=== PATIENT | male | born 1965 | race Caucasian/White ===

== ENCOUNTER 2016-05-16 16:22 | Emergency (ER) | payer MEDICARE ==
[2016-05-16 16:34] VITALS: BP 156/84; PULSE 69; O2SAT 97
[2016-05-16] MEDS ORDERED: TORAdol 30 mg Injection IM ONE ×2 (16:44→17:15)
[2016-05-16] MEDS ORDERED: TORAdol 30 mg Injection ONE ×2 (16:46→17:23)
--- NOTE | 2016-05-16 16:46 | ERPHSYRPT ---
- History of Present Illness Time Seen by Provider: 05/16/16 16:35 Source: patient Exam Limitations: no limitations Patient Subjective Stated Complaint: back pain and sob for days Triage Nursing Assessment: sob for 2 hours. c/o lower back pain since this morning. lungs clear. full sentences. a/o x3. dialysis m,w,f. states 'i feel like i have extra fluid on board today' 1+ edema to lower extremities Timing/Duration: today Activities at Onset: none Severity of Dyspnea-Max: moderate Severity of Dyspnea-Current: moderate Possible Cause: frequent episodes Modifying Factors: Improves With: nothing, other (He says he sleeps in a recliner, which may have aggravated his lumbar spine.) Associated Symptoms: denies symptoms, edema (1+ pretibial pitting edema kim LE at baseline) Allergies/Adverse Reactions: erythromycin base [Erythromycin Base] Allergy (Unknown, Verified 05/16/16 16:34) iodine [Iodine] Allergy (Unknown, Verified 05/16/16 16:34) Macrolide Antibiotics Allergy (Unknown, Verified 05/16/16 16:34) nitrofurantoin [Nitrofurantoin] Allergy (Unknown, Verified 05/16/16 16:34) acetaminophen [From Lortab] Allergy (Verified 05/16/16 16:34) hydrocodone bitartrate [From Lortab] Allergy (Verified 05/16/16 16:34) morphine Allergy (Verified 05/16/16 16:34) shellfish derived Allergy (Verified 05/16/16 16:34) Home Medications: Amlodipine Besylate 5 mg [Norvasc 5 mg] 10 mg PO DAILY 07/07/15 [History] Apixaban [Eliquis] 1 tab PO BID 07/07/15 [History] Aspirin 81 mg PO DAILY 07/07/15 [History] Atorvastatin Calcium [Lipitor] 40 mg PO HS 07/07/15 [History] Clonidine HCl 0.1 mg [Catapres 0.1 MG] 0.2 mg PO BID 07/07/15 [History] Clopidogrel Bisulfate 75 mg [PLAVIX 75 MG Tablet] 75 mg PO DAILY 07/07/15 [History] Divalproex Sodium ER 250 mg [Depakote EXTENDED RELEASE 250 MG] 250 mg PO Q12H 07/07/15 [History] Furosemide 40 mg [Lasix 40 MG] 40 mg PO TID 07/07/15 [History] Insulin Glargine [Lantus Insulin] 15 unit SQ DAILY 07/07/15 [History] Insulin Lispro [Humalog Kwikpen U-100] 0 unit SQ UD 07/07/15 [History] Labetalol HCl 200 mg PO Q12H 07/07/15 [History] Levothyroxine Sodium 75 Mcg [Synthroid 75 Mcg] 75 mcg PO DAILY 07/07/15 [ History] Lisinopril 10 mg [Zestril 10 MG] 20 mg PO DAILY 07/07/15 [History] Metoprolol Succinate 25 mg Xl* [Toprol-Xl 25MG Tablets] 1 tab PO BID [History] Nitroglycerin 0.4 mg Tablet [Nitrostat 0.4 MG Tablet] 0.4 mg SL UD [History] Ondansetron [Ondansetron Odt] 4 mg PO BIDPRN PRN 07/07/15 [History] PANTOPRAZOLE 40 mg Tablet [Protonix 40MG Tablet] 40 mg PO DAILY 07/07/15 [ History] Hx Tetanus, Diphtheria Vaccination/Date Given: Yes Hx Influenza Vaccination/Date Given: Yes Hx Pneumococcal Vaccination/Date Given: No Immunizations Up to Date: Yes - Review of Systems Constitutional: No Symptoms Eyes: No Symptoms Ears, Nose, & Throat: No Symptoms Respiratory: No Symptoms Cardiac: Edema Abdominal/Gastrointestinal: No Symptoms Musculoskeletal: Back Pain (lumbosacral.) Skin: No Symptoms Neurological: No Symptoms Psychological: No Symptoms Endocrine: No Symptoms Hematologic/Lymphatic: No Symptoms Immunological/Allergic: No Symptoms - Past Medical History Pertinent Past Medical History: Yes Neurological History: Migraines ENT History: No Pertinent History Cardiac History: Congestive Heart Failure, Coronary Artery Disease, Hypertension , Myocardial Infarction ([place]) Respiratory History: CHF, COPD Endocrine Medical History: Diabetes Type II, Hypothyroidism Musculoskeletal History: Osteoarthritis, Other GI Medical History: No Pertinent History History: Dialysis, Renal Disease Psycho-Social History: No Pertinent History Male Reproductive Disorders: No Pertinent History Other Medical History: RLS - Past Surgical History Past Surgical History: Yes Neuro Surgical History: No Pertinent History Cardiac: CABG, Cardiac Catheterization, Cardiac Stent Respiratory: No Pertinent History Gastrointestinal: Cholecystectomy Genitourinary: No Pertinent History Musculoskeletal: Orthopedic Surgery Male Surgical History: No Pertinent History Other Surgical History: FISTULA, R hip surgery - Social History Smoking Status: Never smoker How long have you smoked: 30 yrs Exposure to second hand smoke: No Alcohol Use: None Drug Use: none Patient Lives Alone: Yes Significant Family History: heart disease, hypertension - Nursing Vital Signs Nursing Vital Signs: Initial Vital Signs Temperature 98.3 F Temperature Source Oral Pulse Rate 69 Respiratory Rate 22 Blood Pressure 156/84 Pain Intensity 7 - Physical Exam General Appearance: mild distress Eye Exam: PERRL/EOMI, eyes nml inspection Ears, Nose, Throat Exam: hearing grossly normal, normal ENT inspection, normal pharynx Neck Exam: normal inspection, non-tender, supple, full range of motion Respiratory Exam: normal breath sounds, lungs clear Cardiovascular/Chest Exam: normal heart sounds, regular rate/rhythm, normal peripheral pulses Abdominal/Gastrointestinal Exam: soft, normal bowel sounds Extremity Exam: non-tender, normal range of motion, normal inspection Neurologic Exam: alert, oriented x 3, cooperative, normal mood/affect Skin Exam: normal color, warm, dry SpO2 Interpretation: normal SpO2: 97 Oxygen Delivery: Room Air - Course Nursing assessment & vital signs reviewed: Yes - Radiology Exams L-Spine X-ray Interpretation: Interpreted by me, Negative Ordered Tests: Active Orders 24 hr Category Date Time Status LUMBAR LIMITED (2 OR 3 VIEWS) Stat Exams 05/16/16 16:49 Taken Medication Summary Discontinued Medications Generic Name Dose Route Start Last Admin Trade Name Deepika PRN Reason Stop Dose Admin Ketorolac Tromethamine 30 mg 05/16/16 16:44 05/16/16 16:47 Toradol 30 Mg Injection IM 05/16/16 16:45 30 mg STAT ONE Administration Ketorolac Tromethamine Confirm 05/16/16 16:46 Toradol 30 Mg Injection Administered 05/16/16 16:47 Dose 30 mg .ROUTE .STK-MED ONE - Progress Progress: improved Air Movement: good Blood Culture(s) Obtained: No Antibiotics given: No Counseled pt/family regarding: need for follow-up (with PCP), rad results - Departure Time of Disposition: 17:10 Departure Disposition: Home Clinical Impression: Lumbosacral strain Qualifiers: Encounter type: subsequent encounter Qualified Code(s): S39.012D - Strain of muscle, fascia and tendon of lower back, subsequent encounter Condition: Stable Critical Care Time: No
[2016-05-16] MEDS ORDERED: TORAdol 30 mg Injection IV ONE (17:19)
[2016-05-16] MEDS ORDERED: BENADRYL 12.5 MG/5 ML PO ONE (17:35)
[2016-05-16] MEDS ORDERED: MAALOX ES 30 ML UNIT DOSE PO ONE (17:35)
[2016-05-16] MEDS ORDERED: XYLOCAINE VISCOUS 2% 20 ML CUP PO ONE (17:36)
--- NOTE | 2016-05-16 20:59 | XRAY ---
Indication: Low low back pain. No known injury. 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 New L5-S1 disc space narrowing. No acute fracture, subluxation, or suspicious bony lesions.
== END 2016-05-16 17:42 | disposition home or self-care (01) ==
LOC: ED 16:22
DX: S39.012D Strain of muscle, fascia and tendon of lower back, subsequent encounter (principal); I10 Essential (primary) hypertension; I50.9 Heart failure, unspecified; Z79.899 Other long term (current) drug therapy
CPT/HCPCS: 36000; 72100; 96372; 96374; 99283; J1642; J1885

== ENCOUNTER 2016-05-16 21:15 | Emergency (ER) | payer MEDICARE ==
[2016-05-16] MEDS ORDERED: Tylenol #3 Tablet PO ONE (22:06)
[2016-05-16 22:10] LABS: Eosinophil % 4.9 % (0.00-5.0); Granulocytes % 76.2 % (36.0-66.0); Lymphocytes % 10.3 % (24.0-44.0); Mean Cell Volume 88.9 fl (78-100); Mean Corpuscular Hemoglobin 28.9 pg (26-32); Mean Platelet Volume 9.6 fl (6-9.5); Monocytes % 7.6 % (0.0-12.0); Platelet Count 150 K/mm3 (150-450); Red Blood Count 3.25 M/mm3 (4.1-5.6); Red Cell Distribution Width 15.8 % (11.5-14.0); White Blood Count 9.5 K/mm3 (4.0-10.5)
[2016-05-16] MEDS ORDERED: Tylenol #3 Tablet ONE (22:10)
--- NOTE | 2016-05-16 22:12 | ERPHSYRPT ---
- History of Present Illness Time Seen by Provider: 05/16/16 22:06 Source: patient Patient Subjective Stated Complaint: yadira been short of breath when i move around and walk. yadira also got a headache behind my rt eye, Triage Nursing Assessment: pt sitting up in bed, alert and oriented. answers qeustions approp. skin warm and dry. respirations nonlabored, lungs cta, dminished. pt states he is unable to lie flat and is sob at rest. dialysis fistula to rt arm. Physician History: This is a 50-year-old white male with history of migraines, diabetes, hypothyroidism, congestive heart failure, COPD, coronary artery disease, high blood pressure, dialysis, renal disease He arrives with complaint of shortness of breath since this evening worse with walking around he denies any chest pain He also states he has a headache posterior to his eyes again since tonight. Patient had been seen earlier today by Dr. Lambert with complaint of low back pain patient had been given Toradol injection 30 mg. Past medical history includes migraines, diabetes, hypothyroidism, CHF, COPD, coronary artery disease, high blood pressure, dialysis, renal disease, osteoarthritis, restless leg syndrome Past surgical history includes CABG, cardiac catheter, cardiac stents, cholecystectomy, orthopedic surgery, fistula, right hip surgery Timing/Duration: today (symptoms since this evening) Activities at Onset: other (short of breath with walking around) Severity of Dyspnea-Max: mild Severity of Dyspnea-Current: mild Modifying Factors: Improves With: activity. Worsens With: nothing, albuterol inhaler, albuterol nebulizer, coughing, deep breath, exertion, lying down, oxygen, rest Associated Symptoms: constant, No intermittent, No anxiety, No chest pain/ discomfort, No edema, No fever, No insomnia, No loss of appetite, No lightheadedness, No wheezing, No weakness, No ankle swelling, No chills, No hemoptysis, No calf pain, No dizziness, No heaviness, No heart racing, No lightheadedness, No leg swelling, No muscle spasms feet, No muscle spasms hands , No painful breathing, No productive cough, No sweating, No tightness, No tingling face, No tingling hands International travel in last 2 weeks: No Allergies/Adverse Reactions: erythromycin base [Erythromycin Base] Allergy (Unknown, Verified 05/16/16 21:30) iodine [Iodine] Allergy (Unknown, Verified 05/16/16 21:30) Macrolide Antibiotics Allergy (Unknown, Verified 05/16/16 21:30) nitrofurantoin [Nitrofurantoin] Allergy (Unknown, Verified 05/16/16 21:30) acetaminophen [From Lortab] Allergy (Verified 05/16/16 21:30) hydrocodone bitartrate [From Lortab] Allergy (Verified 05/16/16 21:30) morphine Allergy (Verified 05/16/16 21:30) shellfish derived Allergy (Verified 05/16/16 21:30) Home Medications: Amlodipine Besylate 5 mg [Norvasc 5 mg] 10 mg PO DAILY 07/07/15 [History] Apixaban [Eliquis] 1 tab PO BID 07/07/15 [History] Aspirin 81 mg PO DAILY 07/07/15 [History] Atorvastatin Calcium [Lipitor] 40 mg PO HS 07/07/15 [History] Clonidine HCl 0.1 mg [Catapres 0.1 MG] 0.2 mg PO BID 07/07/15 [History] Clopidogrel Bisulfate 75 mg [PLAVIX 75 MG Tablet] 75 mg PO DAILY 07/07/15 [History] Divalproex Sodium ER 250 mg [Depakote EXTENDED RELEASE 250 MG] 250 mg PO Q12H 07/07/15 [History] Furosemide 40 mg [Lasix 40 MG] 40 mg PO TID 07/07/15 [History] Insulin Glargine [Lantus Insulin] 15 unit SQ DAILY 07/07/15 [History] Insulin Lispro [Humalog Kwikpen U-100] 0 unit SQ UD 07/07/15 [History] Labetalol HCl 200 mg PO Q12H 07/07/15 [History] Levothyroxine Sodium 75 Mcg [Synthroid 75 Mcg] 75 mcg PO DAILY 07/07/15 [ History] Lisinopril 10 mg [Zestril 10 MG] 20 mg PO DAILY 07/07/15 [History] Metoprolol Succinate 25 mg Xl* [Toprol-Xl 25MG Tablets] 1 tab PO BID [History] Nitroglycerin 0.4 mg Tablet [Nitrostat 0.4 MG Tablet] 0.4 mg SL UD [History] Ondansetron [Ondansetron Odt] 4 mg PO BIDPRN PRN 07/07/15 [History] PANTOPRAZOLE 40 mg Tablet [Protonix 40MG Tablet] 40 mg PO DAILY 07/07/15 [ History] Hx Tetanus, Diphtheria Vaccination/Date Given: Yes Hx Influenza Vaccination/Date Given: Yes Hx Pneumococcal Vaccination/Date Given: No Immunizations Up to Date: Yes - Review of Systems Constitutional: No Fever, No Chills Eyes: No Symptoms Ears, Nose, & Throat: No Symptoms Respiratory: Dyspnea, Dyspnea on Exertion (ROSE), No Cough Cardiac: No Chest Pain, No Edema, No Syncope Abdominal/Gastrointestinal: No Abdominal Pain, No Nausea, No Vomiting, No Diarrhea Genitourinary Symptoms: No Dysuria Musculoskeletal: No Back Pain, No Neck Pain Skin: No Rash Neurological: Headache, No Dizziness, No Focal Weakness, No Gait Changes, No Irritability, No Lethargy, No Paralysis, No Parasthesia, No Seizure, No Sensory Changes, No Speech Changes, No Tics, No Tremors, No Vertigo Psychological: No Symptoms Endocrine: No Symptoms All Other Systems: Reviewed and Negative - Past Medical History Pertinent Past Medical History: Yes Neurological History: Migraines ENT History: No Pertinent History Cardiac History: Congestive Heart Failure, Coronary Artery Disease, Hypertension , Myocardial Infarction ([place]) Respiratory History: CHF, COPD Endocrine Medical History: Diabetes Type II, Hypothyroidism Musculoskeletal History: Osteoarthritis, Other GI Medical History: No Pertinent History History: Dialysis, Renal Disease Psycho-Social History: No Pertinent History Male Reproductive Disorders: No Pertinent History Other Medical History: RLS - Past Surgical History Past Surgical History: Yes Neuro Surgical History: No Pertinent History Cardiac: CABG, Cardiac Catheterization, Cardiac Stent Respiratory: No Pertinent History Gastrointestinal: Cholecystectomy Genitourinary: No Pertinent History Musculoskeletal: Orthopedic Surgery Male Surgical History: No Pertinent History Other Surgical History: FISTULA, R hip surgery - Social History Smoking Status: Never smoker How long have you smoked: 30 yrs Exposure to second hand smoke: Yes Alcohol Use: None Drug Use: none Patient Lives Alone: No Significant Family History: heart disease, hypertension - Nursing Vital Signs Nursing Vital Signs: Initial Vital Signs Temperature 97.2 F Temperature Source Oral Pulse Rate 74 Respiratory Rate 18 Blood Pressure 160/66 Pain Intensity 8 - Physical Exam General Appearance: no apparent distress, alert, other (morbidly obese white male does not appearto be in acute distress) Eye Exam: PERRL/EOMI Neck Exam: normal inspection, supple Cardiovascular/Chest Exam: normal heart sounds, regular rate/rhythm Abdominal/Gastrointestinal Exam: soft, No tenderness, No distention, No mass Extremity Exam: non-tender, normal range of motion, normal inspection, no calf tenderness, no pedal edema Peripheral Pulses Exam: dorsalis-pedis (R): 2+, dorsalis-pedis (L): 2+ Neurologic Exam: alert, oriented x 3, cooperative, 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, sensation nml, No motor deficits Skin Exam: normal color, warm, No dry SpO2 Interpretation: normal (97%) SpO2: 97 Oxygen Delivery: Room Air - Course Nursing assessment & vital signs reviewed: Yes EKG Interpreted by Me: RATE (78 bpm), Sinus Rhythm, Other (EKG, sinus rhythm, 78 bpm, axisSi/QIII pattern, incomplete right bundle-branch block, first-degree AV block no acute ST or T wave changes noted) - Radiology Exams Chest X-ray Interpretation: Interpreted by me (chf, no infiltrates), Reviewed by me Ordered Tests: Active Orders 24 hr Category Date Time Status EKG-ER Only STAT Care 05/16/16 22:04 Active IV Insertion STAT Care 05/16/16 22:04 Active CHEST 1 VIEW (PORTABLE) Stat Exams 05/16/16 22:04 Taken CBC W DIFF Stat Lab 05/16/16 21:50 Completed CMP Stat Lab 05/16/16 21:50 Completed Lactic Acid Urgent Lab 05/16/16 22:04 Completed NT PRO BNP Stat Lab 05/16/16 21:50 Completed TROPONIN Stat Lab 05/16/16 21:50 Completed VENOUS BLOOD GAS Urgent Lab 05/16/16 22:04 Completed Medication Summary Discontinued Medications Generic Name Dose Route Start Last Admin Trade Name Freq PRN Reason Stop Dose Admin Acetaminophen/Codeine Phosphate 1 tab 05/16/16 22:06 05/16/16 22:10 Tylenol #3 Tablet PO 05/16/16 22:07 1 tab STAT ONE Administration Acetaminophen/Codeine Phosphate Confirm 05/16/16 22:10 Tylenol #3 Tablet Administered 05/16/16 22:11 Dose 1 tab .ROUTE .STK-MED ONE Ondansetron HCl 4 mg 05/16/16 22:48 Zofran 4 Mg/2 Ml Vial IV 05/16/16 22:49 STAT ONE Lab/Rad Data: Laboratory Result Diagrams 05/16/16 21:50 05/16/16 21:50 Laboratory Results 05/16/16 05/16/16 05/16/16 Range/Units 22:04 21:50 21:50 WBC 9.5 (4.0-10.5) K/mm3 RBC 3.25 L (4.1-5.6) M/mm3 Hgb 9.4 L (12.5-18.0) gm/dl Hct 28.9 L (42-50) % MCV 88.9 (78-100) fl MCH 28.9 (26-32) pg MCHC 32.5 (32-36) g/dl RDW 15.8 H (11.5-14.0) % Plt Count 150 (150-450) K/mm3 MPV 9.6 H (6-9.5) fl Gran % 76.2 H (36.0-66.0) % Lymphocytes % 10.3 L (24.0-44.0) % Monocytes % 7.6 (0.0-12.0) % Eosinophils % 4.9 (0.00-5.0) % Basophils % 1.0 (0.0-0.4) % Basophils # 0.09 (0-0.4) VBG pH 7.28 L (7.32-7.42) VBG pCO2 at Pat Temp 40 L (42-55) mm/Hg VBG pO2 at Pat Temp 51 H (25-40) mm/Hg VBG HCO3 18.8 L (22-28) meq/L VBG O2 Sat (Mert) 82.5 L (95-100) VBG Base Excess -7.4 L (-2.0-2.0) VBG Hemoglobin 9.9 VBG Carboxyhemoglobin 1.4 (0.0-6.9) % T HGB POC Potassium 6.5 H* (3.5-5.1) Sodium 129 L (136-145) mEq/L Potassium 6.5 H* (3.5-5.1) mEq/L Chloride 94 L (98-107) mEq/L Carbon Dioxide 20.5 L (21-32) mEq/L Anion Gap 20.4 H (5-15) MEQ/L BUN 90 H (9-20) mg/dL Creatinine 8.76 H (0.55-1.30) mg/dl Estimated GFR 7 ML/MIN Glucose 259 H (70-110) MG/DL Lactic Acid 0.9 (0.4-2.0) Calcium 7.6 L (8.5-10.1) mg/dL Total Bilirubin 0.5 (0.2-1.0) mg/dL AST 23 (15-37) U/L ALT 23 (12-78) U/L Alkaline Phosphatase 105 (46-116) U/L Troponin I 0.017 (0.000-0.056) ng/ml NT-Pro-B Natriuret Pep 98362 H (0-125) pg/ml Serum Total Protein 6.5 (6.4-8.2) gm/dL Albumin 3.8 (3.4-5.0) g/dL - Progress Progress: improved Air Movement: fair Progress Note: 05/16/16 22:10 This is a 50-year-old white male who arrives with complaint of shortness of breath since this evening worse with activity patient was seen earlier today secondary to back pain and shortness of breath by Dr. Camp. Patient now returns states he is short of breath he states he has a headache posterior to his eyes. He has no nausea no vomiting he has no chest pain shortness of breath is when he moves around. Patient is a dialysis patient. Will go ahead and obtain appropriate labs will give patient Tylenol 3 for his headache which he states he can take 05/16/16 23:14 Patient's chest x-ray positive for CHF. Patient's EKG sinus rhythm with first-degree AV block 78 bpm and complete right bundle branch block inversion in lead 3 of the T-wave no acute ST changes. Patient's BNP is elevated at 14,351 troponin is normal at 0.017 glucose is 259 potassium of 6.5 sodium 129 bicarbonate 20.5 chloride 94. Patient given Tylenol 3 for his headache did exhibit some nausea so he was given Zofran. Patient with hyperkalemia, congestive heart failure, renal failure,. Case discussed with Dr. Perez hospitalist at [facility]. She has requested that patient receive calcium gluconate 1 amp IV, D50 1 amp IV , Humulin R 10 units IV. Will start normal saline to keep open Patient will be transferred to [facility] Diagnoses congestive heart failure, hyperkalemia - Departure Time of Disposition: 23:16 Departure Disposition: Transfer ([facility] Dr. Carroll) Clinical Impression: Renal failure, Hyperkalemia Congestive heart failure Qualifiers: Congestive heart failure type: unspecified congestive heart failure type Congestive heart failure chronicity: acute on chronic Qualified Code(s): I50.9 - Heart failure, unspecified Condition: Fair Critical Care Time: No Instructions: Heart Failure
[2016-05-16 22:20] LABS: Lactic Acid 0.9 (0.4-2.0); VBG BASE EXCESS -7.4 (-2.0-2.0); VBG CARBOXYHEMOGLOBIN 1.4 % T HGB (0.0-6.9); VBG HCO3- 18.8 meq/L (22-28); VBG HEMOGLOBIN 9.9; VBG O2 SATURATION 82.5 (95-100); VBG pH 7.28 (7.32-7.42)
[2016-05-16 22:21] LABS: VBG POTASSIUM 6.5 (3.5-5.1)
[2016-05-16 22:29] LABS: ALBUMIN 3.8 g/dL (3.4-5.0); ANION GAP 20.4 MEQ/L (5-15); BILIRUBIN,TOTAL 0.5 mg/dL (0.2-1.0); Carbon Dioxide 20.5 mEq/L (21-32); TROPONIN 0.017 ng/ml (0.000-0.056); Total Protein 6.5 gm/dL (6.4-8.2)
[2016-05-16 22:31] LABS: Potassium 6.5 mEq/L (3.5-5.1)
[2016-05-16 22:47] VITALS: O2SAT 97
[2016-05-16] MEDS ORDERED: Zofran 4 MG/2 ML VIAL IV ONE (22:48)
[2016-05-16] MEDS ORDERED: Zofran 4 MG/2 ML VIAL ONE ×2 (23:16→23:39)
[2016-05-16] MEDS ORDERED: Calcium Gluconate 10% 1000 MG IV ONE ×2 (23:18→23:39)
[2016-05-16] MEDS ORDERED: NovoLIN R IV ONE (23:19)
[2016-05-16] MEDS ORDERED: D50W 50 ml Abboject IV ONE ×2 (23:19→23:42)
[2016-05-16] MEDS ORDERED: Phenergan 25 MG INJ IV ONE (23:24)
[2016-05-16] MEDS ORDERED: Sodium Chloride 0.9% 1000 ML 1,000 ML IV SCH (23:30)
[2016-05-16] MEDS ORDERED: Phenergan 25 MG INJ ONE (23:39)
[2016-05-16] MEDS ORDERED: Sodium Chloride 0.9% 1000 ML 1,000 ML ONE (23:42)
[2016-05-16] MEDS ORDERED: NovoLIN R ONE (23:42)
[2016-05-17] VITALS: BP 186/87; PULSE 78
--- NOTE | 2016-05-17 08:50 | XRAY ---
Indication: Short of breath. Comparison: April 25, 2016 Portable apical lordotic chest again demonstrates cardiomegaly with new vascular congestion and increasing small bibasilar effusions favoring cardiac decompensation. Superimposed pneumonia not completely excluded. Stable left Port-A-Cath and right subclavian stent graft.
== END 2016-05-17 00:10 | disposition short-term general hospital (02) ==
LOC: ED 21:15
DX: I50.9 Heart failure, unspecified (principal); N19 Unspecified kidney failure; E87.5 Hyperkalemia; I10 Essential (primary) hypertension; E11.9 Type 2 diabetes mellitus without complications; Z79.899 Other long term (current) drug therapy
CPT/HCPCS: 36000; 36415; 71010; 80053; 82805; 83605; 83880; 84484; 85025; 93005; 96360; 96374; 96375; 99284; J0610; J2405; J2550

== ENCOUNTER 2016-05-29 05:00 | Emergency (ER) | payer MEDICARE ==
[2016-05-29] MEDS ORDERED: DILAUDID 1 MG/ML INJECTION IV ONE (05:35)
[2016-05-29] MEDS ORDERED: Zofran 4 MG/2 ML VIAL IV ONE (05:35)
--- NOTE | 2016-05-29 05:35 | ERPHSYRPT ---
- History of Present Illness Time Seen by Provider: 05/29/16 05:20 Source: patient Exam Limitations: no limitations Patient Subjective Stated Complaint: pt c/o sob, states it woke him up. also c/ o headache 12/23. Triage Nursing Assessment: pt alert and oriented, answers questions approp. pt ambulatory with steady but slow gait noted. respirations nonlabored. lungs diminished bilat. Physician History: 50 y/o obese male with history of ESRD on HD Tue/Tue/Tue, DM and HTN brought in by ambulance for acute onset shortness of breath that woke him from his sleep. Pt had HD yesterday. Pt mentions that he has had similar symptoms when dialysis has not pulled off enough fluids. Pt also admits to nausea and severe headache. Pt describes the pain as aching, /, constant and pt has not taken any pain meds. Pt denies any fever, chills, chest pain, palpitations, vomiting, cough or sore throat Timing/Duration: today Activities at Onset: none Severity of Dyspnea-Max: moderate Severity of Dyspnea-Current: moderate Possible Cause: occasional episodes Allergies/Adverse Reactions: erythromycin base [Erythromycin Base] Allergy (Unknown, Verified 05/29/16 06:01) iodine [Iodine] Allergy (Unknown, Verified 05/29/16 06:01) Macrolide Antibiotics Allergy (Unknown, Verified 05/29/16 06:01) nitrofurantoin [Nitrofurantoin] Allergy (Unknown, Verified 05/29/16 06:01) acetaminophen [From Lortab] Allergy (Verified 05/29/16 06:01) hydrocodone bitartrate [From Lortab] Allergy (Verified 05/29/16 06:01) morphine Allergy (Verified 05/29/16 06:01) shellfish derived Allergy (Verified 05/29/16 06:01) Home Medications: Amlodipine Besylate 5 mg [Norvasc 5 mg] 10 mg PO DAILY 07/07/15 [History] Apixaban [Eliquis] 1 tab PO BID 07/07/15 [History] Aspirin 81 mg PO DAILY 07/07/15 [History] Atorvastatin Calcium [Lipitor] 40 mg PO HS 07/07/15 [History] Clonidine HCl 0.1 mg [Catapres 0.1 MG] 0.2 mg PO BID 07/07/15 [History] Clopidogrel Bisulfate 75 mg [PLAVIX 75 MG Tablet] 75 mg PO DAILY 07/07/15 [History] Divalproex Sodium ER 250 mg [Depakote EXTENDED RELEASE 250 MG] 250 mg PO Q12H 07/07/15 [History] Furosemide 40 mg [Lasix 40 MG] 40 mg PO TID 07/07/15 [History] Insulin Glargine [Lantus Insulin] 15 unit SQ DAILY 07/07/15 [History] Insulin Lispro [Humalog Kwikpen U-100] 0 unit SQ UD 07/07/15 [History] Labetalol HCl 200 mg PO Q12H 07/07/15 [History] Levothyroxine Sodium 75 Mcg [Synthroid 75 Mcg] 75 mcg PO DAILY 07/07/15 [ History] Lisinopril 10 mg [Zestril 10 MG] 20 mg PO DAILY 07/07/15 [History] Metoprolol Succinate 25 mg Xl* [Toprol-Xl 25MG Tablets] 1 tab PO BID [History] Nitroglycerin 0.4 mg Tablet [Nitrostat 0.4 MG Tablet] 0.4 mg SL UD [History] Ondansetron [Ondansetron Odt] 4 mg PO BIDPRN PRN 07/07/15 [History] PANTOPRAZOLE 40 mg Tablet [Protonix 40MG Tablet] 40 mg PO DAILY 07/07/15 [ History] Hx Tetanus, Diphtheria Vaccination/Date Given: Yes Hx Influenza Vaccination/Date Given: Yes Hx Pneumococcal Vaccination/Date Given: No Immunizations Up to Date: Yes - Review of Systems Constitutional: No Fever, No Chills Eyes: No Symptoms Ears, Nose, & Throat: No Symptoms Respiratory: Dyspnea, No Cough Cardiac: No Chest Pain, No Edema, No Syncope Abdominal/Gastrointestinal: Nausea, No Abdominal Pain, No Vomiting, No Diarrhea Genitourinary Symptoms: No Dysuria Musculoskeletal: No Back Pain, No Neck Pain Skin: No Rash Neurological: Headache, No Dizziness, No Focal Weakness, No Sensory Changes Psychological: No Symptoms Endocrine: No Symptoms All Other Systems: Reviewed and Negative - Past Medical History Pertinent Past Medical History: Yes Neurological History: Migraines ENT History: No Pertinent History Cardiac History: Congestive Heart Failure, Coronary Artery Disease, Hypertension , Myocardial Infarction ([place]) Respiratory History: CHF, COPD Endocrine Medical History: Diabetes Type II, Hypothyroidism Musculoskeletal History: Osteoarthritis, Other GI Medical History: No Pertinent History History: Dialysis, Renal Disease Psycho-Social History: No Pertinent History Male Reproductive Disorders: No Pertinent History Other Medical History: RLS - Past Surgical History Past Surgical History: Yes Neuro Surgical History: No Pertinent History Cardiac: CABG, Cardiac Catheterization, Cardiac Stent Respiratory: No Pertinent History Gastrointestinal: Cholecystectomy Genitourinary: No Pertinent History Musculoskeletal: Orthopedic Surgery Male Surgical History: No Pertinent History Other Surgical History: FISTULA, R hip surgery - Social History Smoking Status: Never smoker How long have you smoked: 30 yrs Exposure to second hand smoke: Yes Alcohol Use: None Drug Use: none Patient Lives Alone: No Significant Family History: heart disease, hypertension - Nursing Vital Signs Nursing Vital Signs: Initial Vital Signs Temperature 98.2 F Temperature Source Oral Pulse Rate 68 Respiratory Rate 15 Blood Pressure 172/78 Pain Intensity 6 - Physical Exam General Appearance: no apparent distress, alert Eye Exam: PERRL/EOMI Neck Exam: normal inspection, supple Respiratory Exam: normal breath sounds, lungs clear Cardiovascular/Chest Exam: normal heart sounds, regular rate/rhythm Abdominal/Gastrointestinal Exam: soft, normal bowel sounds, No tenderness, No distention, No mass Extremity Exam: non-tender, normal range of motion, normal inspection, no calf tenderness, no pedal edema Neurologic Exam: alert, oriented x 3, cooperative, glue cook II-XII nml as tested, sensation nml, No motor deficits Skin Exam: normal color, warm, No dry SpO2: 99 Oxygen Delivery: Nasal Cannula Ordered Tests: Active Orders 24 hr Category Date Time Status CHEST 1 VIEW (PORTABLE) Stat Exams 05/29/16 05:35 Taken CBCD [CBC W DIFF] Stat Lab 05/29/16 05:15 Completed CMP Stat Lab 05/29/16 05:15 Completed TROPONIN Stat Lab 05/29/16 05:15 Completed Medication Summary Discontinued Medications Generic Name Dose Route Start Last Admin Trade Name Freq PRN Reason Stop Dose Admin Hydromorphone HCl 1 mg 05/29/16 05:35 05/29/16 05:43 Dilaudid 1 Mg/Ml Injection IV 05/29/16 05:36 1 mg STAT ONE Administration Hydromorphone HCl Confirm 05/29/16 05:40 Dilaudid 1 Mg/Ml Injection Administered 05/29/16 05:41 Dose 1 mg .ROUTE .STK-MED ONE Ondansetron HCl 4 mg 05/29/16 05:35 05/29/16 05:43 Zofran 4 Mg/2 Ml Vial IV 05/29/16 05:36 4 mg STAT ONE Administration Ondansetron HCl Confirm 05/29/16 05:40 Zofran 4 Mg/2 Ml Vial Administered 05/29/16 05:41 Dose 4 mg .ROUTE .STK-MED ONE Lab/Rad Data: Laboratory Result Diagrams 05/29/16 05:15 05/29/16 05:15 Laboratory Results 05/29/16 05/29/16 05/29/16 Range/Units 05:15 05:15 05:15 WBC 7.3 (4.0-10.5) K/mm3 RBC 3.15 L (4.1-5.6) M/mm3 Hgb 9.3 L (12.5-18.0) gm/dl Hct 29.1 L (42-50) % MCV 92.4 (78-100) fl MCH 29.5 (26-32) pg MCHC 32.0 (32-36) g/dl RDW 17.0 H (11.5-14.0) % Plt Count 143 L (150-450) K/mm3 MPV 9.8 H (6-9.5) fl Gran % 69.0 H (36.0-66.0) % Lymphocytes % 13.3 L (24.0-44.0) % Monocytes % 12.0 (0.0-12.0) % Eosinophils % 4.5 (0.00-5.0) % Basophils % 1.2 (0.0-0.4) % Basophils # 0.09 (0-0.4) Sodium 134 L (136-145) mEq/L Potassium 4.4 (3.5-5.1) mEq/L Chloride 97 L (98-107) mEq/L Carbon Dioxide 22.8 (21-32) mEq/L Anion Gap 19.0 H (5-15) MEQ/L BUN 60 H (9-20) mg/dL Creatinine 5.86 H (0.55-1.30) mg/dl Estimated GFR 11 ML/MIN Glucose 300 H (70-110) MG/DL Calcium 7.4 L (8.5-10.1) mg/dL Total Bilirubin 0.5 (0.2-1.0) mg/dL AST 19 (15-37) U/L ALT 19 (12-78) U/L Alkaline Phosphatase 133 H (46-116) U/L Troponin I 0.040 (0.000-0.056) ng/ml Serum Total Protein 6.6 (6.4-8.2) gm/dL Albumin 3.7 (3.4-5.0) g/dL - Progress Progress: improved Air Movement: good Progress Note: 05/29/16 06:55 The chest x ray shows bilateral pulmonary edema and will need to have fluid pulled off. The rest of the labs are chronic in nature. Pt has been accepted at [facility] for pulmonary edema and has been accepted by hospitalistGIFTY Ashley - Departure Time of Disposition: 06:57 Departure Disposition: Transfer Clinical Impression: Pulmonary edema, ESRD (end stage renal disease) Condition: Stable Critical Care Time(excluding separately billable procedures): 75-104 minutes
[2016-05-29] MEDS ORDERED: Zofran 4 MG/2 ML VIAL ONE (05:40)
[2016-05-29] MEDS ORDERED: DILAUDID 1 MG/ML INJECTION ONE (05:40)
[2016-05-29 05:56] LABS: BASOPHIL % 1.2 % (0.0-0.4); Eosinophil % 4.5 % (0.00-5.0); Lymphocytes % 13.3 % (24.0-44.0); Mean Cell Volume 92.4 fl (78-100); Mean Corpuscular Hemoglobin 29.5 pg (26-32); Mean Platelet Volume 9.8 fl (6-9.5); Platelet Count 143 K/mm3 (150-450); Red Blood Count 3.15 M/mm3 (4.1-5.6); White Blood Count 7.3 K/mm3 (4.0-10.5)
[2016-05-29 06:10] LABS: ALBUMIN 3.7 g/dL (3.4-5.0); BILIRUBIN,TOTAL 0.5 mg/dL (0.2-1.0); Carbon Dioxide 22.8 mEq/L (21-32); Potassium 4.4 mEq/L (3.5-5.1); Total Protein 6.6 gm/dL (6.4-8.2)
[2016-05-29 06:58] VITALS: O2SAT 99
[2016-05-29 07:57] VITALS: BP 183/90; PULSE 64
--- NOTE | 2016-05-29 08:48 | XRAY ---
Indication: Chest pain. Comparison: May 16, 2016 Portable chest unchanged again demonstrating cardiomegaly, vascular congestion, and small bibasilar effusions favoring cardiac decompensation. Again superimposed pneumonia not completely excluded. No new abnormalities.
== END 2016-05-29 08:10 | disposition short-term general hospital (02) ==
LOC: ED 05:00
DX: J81.1 Chronic pulmonary edema (principal); N18.6 End stage renal disease; E11.9 Type 2 diabetes mellitus without complications; I10 Essential (primary) hypertension; R11.0 Nausea; R51 Headache; Z79.4 Long term (current) use of insulin; Z79.899 Other long term (current) drug therapy; Z79.82 Long term (current) use of aspirin; I50.9 Heart failure, unspecified; I25.10 Atherosclerotic heart disease of native coronary artery without angina pectoris; I25.2 Old myocardial infarction; E03.9 Hypothyroidism, unspecified
CPT/HCPCS: 36000; 36415; 71010; 80053; 84484; 85025; 96374; 96375; 99284; J1170; J2405

== ENCOUNTER 2016-06-03 21:15 | Emergency (ER) | payer MEDICARE ==
[2016-06-03 21:25] VITALS: BP 162/72; O2SAT 93
[2016-06-03] MEDS ORDERED: PROVENTIL 2.5 MG/3 ML NEB IH ONE ×2 (21:29→21:39)
--- NOTE | 2016-06-03 21:38 | ERPHSYRPT ---
- History of Present Illness Time Seen by Provider: 06/03/16 21:30 Source: patient Exam Limitations: no limitations Physician History: SINCE THIS AM PT HAS HAD EARACHES, A FRONTAL HEADACHE AND SHORTNESS OF AIR; SINCE YESTERDAY A COUGH PRODUCTIVE OF YELLOW PHLEGM. PT DENIES CHEST PAIN, NAUSEA, VOMITING, DIAPHORESIS. Allergies/Adverse Reactions: erythromycin base [Erythromycin Base] Allergy (Unknown, Verified 05/29/16 06:01) iodine [Iodine] Allergy (Unknown, Verified 05/29/16 06:01) Macrolide Antibiotics Allergy (Unknown, Verified 05/29/16 06:01) nitrofurantoin [Nitrofurantoin] Allergy (Unknown, Verified 05/29/16 06:01) acetaminophen [From Lortab] Allergy (Verified 05/29/16 06:01) hydrocodone bitartrate [From Lortab] Allergy (Verified 05/29/16 06:01) morphine Allergy (Verified 05/29/16 06:01) shellfish derived Allergy (Verified 05/29/16 06:01) Home Medications: Amlodipine Besylate 5 mg [Norvasc 5 mg] 10 mg PO DAILY 07/07/15 [History] Apixaban [Eliquis] 1 tab PO BID 07/07/15 [History] Aspirin 81 mg PO DAILY 07/07/15 [History] Atorvastatin Calcium [Lipitor] 40 mg PO HS 07/07/15 [History] Clonidine HCl 0.1 mg [Catapres 0.1 MG] 0.2 mg PO BID 07/07/15 [History] Clopidogrel Bisulfate 75 mg [PLAVIX 75 MG Tablet] 75 mg PO DAILY 07/07/15 [History] Divalproex Sodium ER 250 mg [Depakote EXTENDED RELEASE 250 MG] 250 mg PO Q12H 07/07/15 [History] Furosemide 40 mg [Lasix 40 MG] 40 mg PO TID 07/07/15 [History] Insulin Glargine [Lantus Insulin] 15 unit SQ DAILY 07/07/15 [History] Insulin Lispro [Humalog Kwikpen U-100] 0 unit SQ UD 07/07/15 [History] Labetalol HCl 200 mg PO Q12H 07/07/15 [History] Levothyroxine Sodium 75 Mcg [Synthroid 75 Mcg] 75 mcg PO DAILY 07/07/15 [ History] Lisinopril 10 mg [Zestril 10 MG] 20 mg PO DAILY 07/07/15 [History] Metoprolol Succinate 25 mg Xl* [Toprol-Xl 25MG Tablets] 1 tab PO BID [History] Nitroglycerin 0.4 mg Tablet [Nitrostat 0.4 MG Tablet] 0.4 mg SL UD [History] Ondansetron [Ondansetron Odt] 4 mg PO BIDPRN PRN 07/07/15 [History] PANTOPRAZOLE 40 mg Tablet [Protonix 40MG Tablet] 40 mg PO DAILY 07/07/15 [ History] Hx Tetanus, Diphtheria Vaccination/Date Given: Yes Hx Influenza Vaccination/Date Given: Yes Hx Pneumococcal Vaccination/Date Given: No - Review of Systems Ears, Nose, & Throat: Ear Pain Respiratory: Cough, Dyspnea Cardiac: No Chest Pain Abdominal/Gastrointestinal: No Abdominal Pain, No Nausea, No Vomiting Skin: No Rash Neurological: Headache Endocrine: No Excessive Sweating All Other Systems: Reviewed and Negative - Past Medical History Pertinent Past Medical History: Yes Neurological History: Migraines ENT History: No Pertinent History Cardiac History: Congestive Heart Failure, Coronary Artery Disease, Hypertension , Myocardial Infarction ([place]) Respiratory History: CHF, COPD Endocrine Medical History: Diabetes Type II, Hypothyroidism Musculoskeletal History: Osteoarthritis, Other GI Medical History: No Pertinent History History: Dialysis, Renal Disease Psycho-Social History: No Pertinent History Male Reproductive Disorders: No Pertinent History Other Medical History: RLS - Past Surgical History Past Surgical History: Yes Neuro Surgical History: No Pertinent History Cardiac: CABG, Cardiac Catheterization, Cardiac Stent Respiratory: No Pertinent History Gastrointestinal: Cholecystectomy Genitourinary: No Pertinent History Musculoskeletal: Orthopedic Surgery Male Surgical History: No Pertinent History Other Surgical History: FISTULA, R hip surgery - Social History Smoking Status: Never smoker How long have you smoked: 30 yrs Exposure to second hand smoke: Yes Alcohol Use: None Drug Use: none Patient Lives Alone: No Significant Family History: heart disease, hypertension - Nursing Vital Signs Nursing Vital Signs: Initial Vital Signs Temperature 97.7 F Temperature Source Oral Pulse Rate 70 Respiratory Rate 20 Blood Pressure [Left Arm] 162/72 Pain Intensity 7 - Physical Exam General Appearance: alert Eye Exam: PERRL/EOMI, eyes nml inspection Ears, Nose, Throat Exam: TMs normal, moist mucous membranes, pharyngeal erythema Neck Exam: normal inspection Respiratory Exam: wheezing (MILD EXPIRATORY WHEEZING AT POSTERIOR BASES) Cardiovascular Exam: normal heart sounds Gastrointestinal/Abdomen Exam: soft, normal bowel sounds Back Exam: other (STASIS DERMATITIS OF LOWER LEGS) Extremity Exam: other (NO ANKLE EDEMA) Neurologic Exam: alert, cooperative Skin Exam: warm, dry SpO2 Interpretation: normal SpO2: 93 Oxygen Delivery: Room Air - Course Nursing assessment & vital signs reviewed: Yes Ordered Tests: Active Orders 24 hr Category Date Time Status Respiratory Nebulizer STAT RT 06/03/16 21:32 Active - Departure Time of Disposition: 21:46 Departure Disposition: Home Clinical Impression: BRONCHITIS, PHARYNGITIS Condition: Fair Critical Care Time: No Instructions: Bronchitis Additional Instructions: FOLLOW UP WITH PRIVATE DOCTOR TOMORROW. Prescriptions: Benzonatate [Tessalon Perle] 100 mg PO Q8H PRN PRN #30 capsule PRN Reason: Cough Cephalexin Monohydrate [Keflex] 500 mg PO TID #0 capsule
[2016-06-03 21:44] VITALS: PULSE 65
[2016-06-03] MEDS ORDERED: Phenergan 25 MG INJ IM ONE (21:46)
[2016-06-03] MEDS ORDERED: DILAUDID 1 MG/ML INJECTION IM ONE (21:46)
[2016-06-03] MEDS ORDERED: Rocephin 1000 MG INJ IM ONE (21:47)
[2016-06-03] MEDS ORDERED: Rocephin 1000 MG INJ ONE (21:53)
[2016-06-03] MEDS ORDERED: Phenergan 25 MG INJ ONE (21:53)
[2016-06-03] MEDS ORDERED: DILAUDID 1 MG/ML INJECTION ONE (21:53)
[2016-06-03] MEDS ORDERED: XYLOCAINE 1% HCL 20 ML MDV ONE (21:53)
== END 2016-06-03 22:40 | disposition home or self-care (01) ==
LOC: ED 21:15
DX: J40 Bronchitis, not specified as acute or chronic (principal); J02.9 Acute pharyngitis, unspecified; H92.09 Otalgia, unspecified ear; R51 Headache; R06.02 Shortness of breath; R05 Cough; Z79.4 Long term (current) use of insulin; Z79.899 Other long term (current) drug therapy; Z79.82 Long term (current) use of aspirin; Z95.1 Presence of aortocoronary bypass graft; Z98.61 Coronary angioplasty status
CPT/HCPCS: 94640; 96372; 99283; J0696; J1170; J2550

== ENCOUNTER 2016-06-05 04:19 | Emergency (ER) | payer MEDICARE ==
[2016-06-05] MEDS ORDERED: DUONEB 0.5-3 MG/3 ml Neb IH ONE ×2 (04:26→04:28)
[2016-06-05] MEDS ORDERED: SUBLIMAZE 100 MCG/2 ML IV ONE ×2 (04:26→05:42)
[2016-06-05] MEDS ORDERED: Sodium Chloride 0.9% 1000 ML 1,000 ML IV SCH (04:30)
[2016-06-05] MEDS ORDERED: SUBLIMAZE 100 MCG/2 ML ONE ×2 (04:36→05:43)
[2016-06-05] MEDS ORDERED: Sodium Chloride 0.9% 1000 ML 1,000 ML ONE (04:36)
[2016-06-05 04:48] LABS: Mean Cell Volume 94.1 fl (78-100); Mean Platelet Volume 9.7 fl (6-9.5); Platelet Count 117 K/mm3 (150-450); Red Blood Count 3.38 M/mm3 (4.1-5.6); Red Cell Distribution Width 16.8 % (11.5-14.0); White Blood Count 9.3 K/mm3 (4.0-10.5)
[2016-06-05 04:56] LABS: Mean Corpuscular Hemoglobin 28.6 pg (26-32)
[2016-06-05 05:09] LABS: Eosinophil 1 % (0.00-3.0); Total Cells Counted 100
[2016-06-05 05:10] LABS: Platelet Estimate DECREASED (NORMAL)
[2016-06-05 05:12] LABS: ALBUMIN 3.7 g/dL (3.4-5.0); BILIRUBIN,TOTAL 0.6 mg/dL (0.2-1.0); Carbon Dioxide 21.6 mEq/L (21-32); Potassium 4.2 mEq/L (3.5-5.1); Total Protein 6.9 gm/dL (6.4-8.2)
--- NOTE | 2016-06-05 05:42 | ERPHSYRPT ---
- History of Present Illness Time Seen by Provider: 06/05/16 05:38 Historian: patient Exam Limitations: no limitations Patient Subjective Stated Complaint: pt states approx one hour ago he started having chest pain -took 3 nitro without releif -he states he has a "cold" he is coughing and gagging upon arr -co shortness of air and must remain sitting upright -he was seen 06/03 -treated with rocephin and rx for bronchitis and pharyngitis Triage Nursing Assessment: pt is awake and alert and able to answer questions Physician History: pt states approx one hour ago he started having chest pain -took 3 nitro without releif -he states he has a "cold" he is coughing and gagging upon arr - co shortness of air and must remain sitting upright -he was seen 06/03 -treated with rocephin and rx for bronchitis and pharyngitis. patient has multiple ER visits with same complaints Timing/Duration: today Activities at Onset: none Location: central Severity of Pain-Max: mild Severity of Pain-Current: none Modifying Factors: Improves With: nothing Associated Symptoms: shortness of breath Aspirin Treatment Today: 81 mg x 1 Allergies/Adverse Reactions: erythromycin base [Erythromycin Base] Allergy (Unknown, Verified 06/05/16 04:58) iodine [Iodine] Allergy (Unknown, Verified 06/05/16 04:58) Macrolide Antibiotics Allergy (Unknown, Verified 06/05/16 04:58) nitrofurantoin [Nitrofurantoin] Allergy (Unknown, Verified 06/05/16 04:58) acetaminophen [From Lortab] Allergy (Verified 06/05/16 04:58) hydrocodone bitartrate [From Lortab] Allergy (Verified 06/05/16 04:58) morphine Allergy (Verified 06/05/16 04:58) shellfish derived Allergy (Verified 06/05/16 04:58) Home Medications: Amlodipine Besylate 5 mg [Norvasc 5 mg] 10 mg PO DAILY 07/07/15 [History] Apixaban [Eliquis] 1 tab PO BID 07/07/15 [History] Aspirin 81 mg PO DAILY 07/07/15 [History] Atorvastatin Calcium [Lipitor] 40 mg PO HS 07/07/15 [History] Clonidine HCl 0.1 mg [Catapres 0.1 MG] 0.2 mg PO BID 07/07/15 [History] Clopidogrel Bisulfate 75 mg [PLAVIX 75 MG Tablet] 75 mg PO DAILY 07/07/15 [History] Divalproex Sodium ER 250 mg [Depakote EXTENDED RELEASE 250 MG] 250 mg PO Q12H 07/07/15 [History] Furosemide 40 mg [Lasix 40 MG] 40 mg PO TID 07/07/15 [History] Insulin Glargine [Lantus Insulin] 15 unit SQ DAILY 07/07/15 [History] Insulin Lispro [Humalog Kwikpen U-100] 0 unit SQ UD 07/07/15 [History] Labetalol HCl 200 mg PO Q12H 07/07/15 [History] Levothyroxine Sodium 75 Mcg [Synthroid 75 Mcg] 75 mcg PO DAILY 07/07/15 [ History] Lisinopril 10 mg [Zestril 10 MG] 20 mg PO DAILY 07/07/15 [History] Metoprolol Succinate 25 mg Xl* [Toprol-Xl 25MG Tablets] 1 tab PO BID [History] Nitroglycerin 0.4 mg Tablet [Nitrostat 0.4 MG Tablet] 0.4 mg SL UD [History] Ondansetron [Ondansetron Odt] 4 mg PO BIDPRN PRN 07/07/15 [History] PANTOPRAZOLE 40 mg Tablet [Protonix 40MG Tablet] 40 mg PO DAILY 07/07/15 [ History] Hx Tetanus, Diphtheria Vaccination/Date Given: Yes Hx Influenza Vaccination/Date Given: Yes Hx Pneumococcal Vaccination/Date Given: No - Review of Systems Constitutional: No Fever, No Chills Eyes: No Symptoms Ears, Nose, & Throat: No Symptoms Respiratory: Dyspnea, No Cough Cardiac: Chest Pain, No Edema, No Syncope Abdominal/Gastrointestinal: No Abdominal Pain, No Nausea, No Vomiting, No Diarrhea Genitourinary Symptoms: No Dysuria Musculoskeletal: No Back Pain, No Neck Pain Skin: No Rash Neurological: No Dizziness, No Focal Weakness, No Sensory Changes Psychological: No Symptoms Endocrine: No Symptoms All Other Systems: Reviewed and Negative - Past Medical History Pertinent Past Medical History: Yes Neurological History: Migraines ENT History: No Pertinent History Cardiac History: Congestive Heart Failure, Coronary Artery Disease, Hypertension , Myocardial Infarction ([place]) Respiratory History: CHF, COPD Endocrine Medical History: Diabetes Type II, Hypothyroidism Musculoskeletal History: Osteoarthritis, Other GI Medical History: No Pertinent History History: Dialysis, Renal Disease Psycho-Social History: No Pertinent History Male Reproductive Disorders: No Pertinent History Other Medical History: RLS - Past Surgical History Past Surgical History: Yes Neuro Surgical History: No Pertinent History Cardiac: CABG, Cardiac Catheterization, Cardiac Stent Respiratory: No Pertinent History Gastrointestinal: Cholecystectomy Genitourinary: No Pertinent History Musculoskeletal: Orthopedic Surgery Male Surgical History: No Pertinent History Other Surgical History: FISTULA, R hip surgery - Social History Smoking Status: Never smoker How long have you smoked: 30 yrs Exposure to second hand smoke: Yes Alcohol Use: None Drug Use: none Patient Lives Alone: No Significant Family History: heart disease, hypertension - Nursing Vital Signs Temperature: 99.9 F Temperature Source: Oral Pulse Rate: 72 Respiratory Rate: 20 Pain Intensity: 6 - Physical Exam General Appearance: no apparent distress, alert Eye Exam: PERRL/EOMI, eyes nml inspection Ears, Nose, Throat Exam: normal ENT inspection, moist mucous membranes Neck Exam: normal inspection, non-tender, supple, full range of motion Respiratory Exam: normal breath sounds, diminished breath sounds, wheezing, No respiratory distress Cardiovascular Exam: regular rate/rhythm, normal heart sounds Gastrointestinal/Abdomen Exam: soft, No tenderness, No mass Back Exam: normal inspection, No CVA tenderness, No vertebral tenderness Extremity Exam: normal inspection, normal range of motion Neurologic Exam: alert, oriented x 3, cooperative, normal mood/affect, sensation nml, No motor deficits Skin Exam: normal color, warm, dry SpO2: 97 Oxygen Delivery: Nasal Cannula - Course Nursing assessment & vital signs reviewed: Yes EKG Interpreted by Me: Non-specific ST Changes - Radiology Exams Chest X-ray Interpretation: Reviewed by me, No Pneumonia, No Pneumothorax, No Infiltrates Ordered Tests: Active Orders 24 hr Category Date Time Status Almond Blancher STAT Care 06/05/16 04:26 Active EKG-ER Only STAT Care 06/05/16 04:26 Active IV Insertion STAT Care 06/05/16 04:26 Active Oxygen-ED Only NASAL CANNULA 2 lpm Care 06/05/16 04:26 Active CHEST 1 VIEW (PORTABLE) Stat Exams 06/05/16 04:27 Taken CBC W DIFF Stat Lab 06/05/16 04:30 Completed CMP Stat Lab 06/05/16 04:30 Completed Manual Differential NC Stat Lab 06/05/16 04:30 Completed TROPONIN Stat Lab 06/05/16 04:30 Completed Respiratory Nebulizer STAT RT 06/05/16 04:28 Completed Medication Summary Generic Name Dose Route Start Last Admin Trade Name Freq PRN Reason Stop Dose Admin Sodium Chloride 1,000 mls @ 50 mls/hr 06/05/16 04:30 06/05/16 04:48 Sodium Chloride 0.9% 1000 Ml IV 07/05/16 04:29 50 mls/hr .Q20H FILI Administration Discontinued Medications Generic Name Dose Route Start Last Admin Trade Name Freq PRN Reason Stop Dose Admin Albuterol/Ipratropium 3 ml 06/05/16 04:26 06/05/16 04:30 Duoneb 0.5-3 Mg/3 Ml Neb IH 06/05/16 04:27 3 ml STAT ONE Administration Albuterol/Ipratropium Confirm 06/05/16 04:28 Duoneb 0.5-3 Mg/3 Ml Neb Administered 06/05/16 04:29 Dose 3 ml IH .STK-MED ONE Fentanyl Citrate 50 mcg 06/05/16 04:26 06/05/16 04:48 Sublimaze 100 Mcg/2 Ml IV 06/05/16 04:27 50 mcg STAT ONE Administration Fentanyl Citrate Confirm 06/05/16 04:36 Sublimaze 100 Mcg/2 Ml Administered 06/05/16 04:37 Dose 100 mcg .ROUTE .STK-MED ONE Sodium Chloride Confirm 06/05/16 04:36 Sodium Chloride 0.9% 1000 Ml Administered 06/05/16 04:37 Dose 1,000 mls @ ud .ROUTE .STK-MED ONE Lab/Rad Data: Laboratory Result Diagrams 06/05/16 04:30 06/05/16 04:30 Laboratory Results 06/05/16 06/05/16 06/05/16 Range/Units 04:30 04:30 04:30 WBC 9.3 (4.0-10.5) K/mm3 RBC 3.38 L (4.1-5.6) M/mm3 Hgb 9.7 L (12.5-18.0) gm/dl Hct 31.8 L (42-50) % MCV 94.1 (78-100) fl MCH 28.6 (26-32) pg MCHC 30.5 L (32-36) g/dl RDW 16.8 H (11.5-14.0) % Plt Count 117 L (150-450) K/mm3 MPV 9.7 H (6-9.5) fl Segmented Neutrophils 86 H (36.-66.) % Lymphocytes (Manual) 4 L (24-44) % Monocytes (Manual) 9 (0.0-12.0) % Eosinophils (Manual) 1 (0.00-3.0) % Differential Comment NORMAL Platelet Estimate DECREASED (NORMAL) Sodium 128 L (136-145) mEq/L Potassium 4.2 (3.5-5.1) mEq/L Chloride 93 L (98-107) mEq/L Carbon Dioxide 21.6 (21-32) mEq/L Anion Gap 18.0 H (5-15) MEQ/L BUN 41 H (9-20) mg/dL Creatinine 6.26 H (0.55-1.30) mg/dl Estimated GFR 10 ML/MIN Glucose 160 H (70-110) MG/DL Calcium 7.9 L (8.5-10.1) mg/dL Total Bilirubin 0.6 (0.2-1.0) mg/dL AST 21 (15-37) U/L ALT 18 (12-78) U/L Alkaline Phosphatase 140 H (46-116) U/L Troponin I 0.027 (0.000-0.056) ng/ml Serum Total Protein 6.9 (6.4-8.2) gm/dL Albumin 3.7 (3.4-5.0) g/dL - Progress Progress: improved Air Movement: good Blood Culture(s) Obtained: No Antibiotics given: No Counseled pt/family regarding: diagnosis, need for follow-up - Departure Time of Disposition: 05:41 Departure Disposition: Home Clinical Impression: Shortness of breath Chest pain Qualifiers: Chest pain type: other chest pain Qualified Code(s): R07.89 - Other chest pain ; R07.8 - Other chest pain Chronic renal failure Qualifiers: Chronic kidney disease stage: stage 5 Qualified Code(s): N18.5 - Chronic kidney disease, stage 5 Condition: Stable Critical Care Time: Yes Critical Care Time(excluding separately billable procedures): 30-74 minutes Referrals: DALILA MARY [Primary Care Provider] - Instructions: Atypical Chest Pain
[2016-06-05 06:55] VITALS: BP 180/70; PULSE 70; O2SAT 99
--- NOTE | 2016-06-05 09:12 | XRAY ---
Indication: Chest pain and wheezing. Comparison: May 29, 2016 Portable chest again demonstrates cardiomegaly, vascular congestion, and small bibasilar effusions. Superimposed pneumonia not completely excluded. Stable right subclavian stent graft and left Port-A-Cath.
== END 2016-06-05 06:15 | disposition home or self-care (01) ==
LOC: ED 04:19
DX: R07.89 Other chest pain (principal); N18.5 Chronic kidney disease, stage 5; R06.02 Shortness of breath; I50.9 Heart failure, unspecified; I25.10 Atherosclerotic heart disease of native coronary artery without angina pectoris; I10 Essential (primary) hypertension; I21.3 ST elevation (STEMI) myocardial infarction of unspecified site; E11.9 Type 2 diabetes mellitus without complications; E03.9 Hypothyroidism, unspecified; Z79.4 Long term (current) use of insulin; Z79.899 Other long term (current) drug therapy; Z79.01 Long term (current) use of anticoagulants; Z95.1 Presence of aortocoronary bypass graft; Z98.61 Coronary angioplasty status
CPT/HCPCS: 36000; 36415; 71010; 80053; 84484; 85025; 93005; 93041; 94640; 96360; 96361; 96374; 96375; 96376; 99284; J1642; J3010

== ENCOUNTER 2016-06-06 07:00 | Emergency (ER) | payer MEDICARE ==
[2016-06-06] MEDS ORDERED: DUONEB 0.5-3 MG/3 ml Neb IH ONE ×2 (07:23→07:41)
[2016-06-06] MEDS ORDERED: SUBLIMAZE 100 MCG/2 ML IV ONE (07:26)
--- NOTE | 2016-06-06 07:33 | ERPHSYRPT ---
- History of Present Illness Time Seen by Provider: 06/06/16 07:28 Source: patient Exam Limitations: no limitations Patient Subjective Stated Complaint: pt reports headache-nonproductive cough- denies fever-denies n/v/d Triage Nursing Assessment: pt pink warm et dry-a & o x 3-moving all extremitites well-no cough noted during triage Physician History: c/o headache, shortness of breath, productive cough, patient was in ER 2 days ago with same complaints, treated as outpatient. Timing/Duration: day(s) Activities at Onset: none Severity of Dyspnea-Max: moderate Severity of Dyspnea-Current: moderate Possible Cause: frequent episodes Modifying Factors: Improves With: albuterol inhaler Associated Symptoms: productive cough International travel in last 2 weeks: No Allergies/Adverse Reactions: erythromycin base [Erythromycin Base] Allergy (Unknown, Verified 06/06/16 07:09) iodine [Iodine] Allergy (Unknown, Verified 06/06/16 07:09) Macrolide Antibiotics Allergy (Unknown, Verified 06/06/16 07:09) nitrofurantoin [Nitrofurantoin] Allergy (Unknown, Verified 06/06/16 07:09) acetaminophen [From Lortab] Allergy (Verified 06/06/16 07:09) hydrocodone bitartrate [From Lortab] Allergy (Verified 06/06/16 07:09) morphine Allergy (Verified 06/06/16 07:09) shellfish derived Allergy (Verified 06/06/16 07:09) Home Medications: Amlodipine Besylate 5 mg [Norvasc 5 mg] 10 mg PO DAILY 07/07/15 [History] Apixaban [Eliquis] 1 tab PO BID 07/07/15 [History] Aspirin 81 mg PO DAILY 07/07/15 [History] Atorvastatin Calcium [Lipitor] 40 mg PO HS 07/07/15 [History] Clonidine HCl 0.1 mg [Catapres 0.1 MG] 0.2 mg PO BID 07/07/15 [History] Clopidogrel Bisulfate 75 mg [PLAVIX 75 MG Tablet] 75 mg PO DAILY 07/07/15 [History] Divalproex Sodium ER 250 mg [Depakote EXTENDED RELEASE 250 MG] 250 mg PO Q12H 07/07/15 [History] Furosemide 40 mg [Lasix 40 MG] 40 mg PO TID 07/07/15 [History] Insulin Glargine [Lantus Insulin] 15 unit SQ DAILY 07/07/15 [History] Insulin Lispro [Humalog Kwikpen U-100] 0 unit SQ UD 07/07/15 [History] Labetalol HCl 200 mg PO Q12H 07/07/15 [History] Levothyroxine Sodium 75 Mcg [Synthroid 75 Mcg] 75 mcg PO DAILY 07/07/15 [ History] Lisinopril 10 mg [Zestril 10 MG] 20 mg PO DAILY 07/07/15 [History] Metoprolol Succinate 25 mg Xl* [Toprol-Xl 25MG Tablets] 1 tab PO BID [History] Nitroglycerin 0.4 mg Tablet [Nitrostat 0.4 MG Tablet] 0.4 mg SL UD [History] Ondansetron [Ondansetron Odt] 4 mg PO BIDPRN PRN 07/07/15 [History] PANTOPRAZOLE 40 mg Tablet [Protonix 40MG Tablet] 40 mg PO DAILY 07/07/15 [ History] Hx Tetanus, Diphtheria Vaccination/Date Given: Yes Hx Influenza Vaccination/Date Given: Yes Hx Pneumococcal Vaccination/Date Given: No Immunizations Up to Date: Yes - Review of Systems Constitutional: No Fever, No Chills Eyes: No Symptoms Ears, Nose, & Throat: No Symptoms Respiratory: Cough, Dyspnea, Dyspnea on Exertion (ROSE), Wheezing Cardiac: No Chest Pain, No Edema, No Syncope Abdominal/Gastrointestinal: No Abdominal Pain, No Nausea, No Vomiting, No Diarrhea Genitourinary Symptoms: No Dysuria Musculoskeletal: No Back Pain, No Neck Pain Skin: No Rash Neurological: Headache, No Dizziness, No Focal Weakness, No Sensory Changes Psychological: No Symptoms Endocrine: No Symptoms All Other Systems: Reviewed and Negative - Past Medical History Pertinent Past Medical History: Yes Neurological History: Migraines ENT History: No Pertinent History Cardiac History: Congestive Heart Failure, Coronary Artery Disease, Hypertension , Myocardial Infarction ([place]) Respiratory History: CHF, COPD Endocrine Medical History: Diabetes Type II, Hypothyroidism Musculoskeletal History: Osteoarthritis, Other GI Medical History: No Pertinent History History: Dialysis, Renal Disease Psycho-Social History: No Pertinent History Male Reproductive Disorders: No Pertinent History Other Medical History: RLS - Past Surgical History Past Surgical History: Yes Neuro Surgical History: No Pertinent History Cardiac: CABG, Cardiac Catheterization, Cardiac Stent Respiratory: No Pertinent History Gastrointestinal: Cholecystectomy Genitourinary: No Pertinent History Musculoskeletal: Orthopedic Surgery Male Surgical History: No Pertinent History Other Surgical History: FISTULA, R hip surgery - Social History Smoking Status: Former smoker How long have you smoked: 30 yrs Exposure to second hand smoke: Yes Alcohol Use: None Drug Use: none Patient Lives Alone: No Significant Family History: heart disease, hypertension - Nursing Vital Signs Nursing Vital Signs: Initial Vital Signs Temperature 98.3 F Temperature Source Oral Pulse Rate 67 Respiratory Rate 28 Blood Pressure [Left Arm] 183/96 Pain Intensity 7 - Physical Exam General Appearance: no apparent distress, alert Eye Exam: PERRL/EOMI Neck Exam: normal inspection, supple Respiratory Exam: diminished breath sounds, crackles/rales, rhonchi, wheezing Cardiovascular/Chest Exam: normal heart sounds, regular rate/rhythm Abdominal/Gastrointestinal Exam: soft, No tenderness, No distention, No mass Extremity Exam: non-tender, normal range of motion, normal inspection, no calf tenderness, no pedal edema Neurologic Exam: alert, oriented x 3, cooperative, 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, sensation nml, No motor deficits Skin Exam: normal color, warm, No dry SpO2 Interpretation: borderline oxygenation SpO2: 92 Oxygen Delivery: Nasal Cannula - Course Nursing assessment & vital signs reviewed: Yes Ordered Tests: Active Orders 24 hr Category Date Time Status IV Insertion STAT Care 06/06/16 07:40 Active Oxygen-ED Only NASAL CANNULA 2 lpm Care 06/06/16 07:23 Active BMP Stat Lab 06/06/16 07:52 Completed CBC W DIFF Stat Lab 06/06/16 07:52 Completed Respiratory Nebulizer STAT RT 06/06/16 07:25 Completed Medication Summary Discontinued Medications Generic Name Dose Route Start Last Admin Trade Name Freq PRN Reason Stop Dose Admin Albuterol/Ipratropium 3 ml 06/06/16 07:23 06/06/16 07:48 Duoneb 0.5-3 Mg/3 Ml Neb IH 06/06/16 07:24 3 ml STAT ONE Administration Albuterol/Ipratropium Confirm 06/06/16 07:41 Duoneb 0.5-3 Mg/3 Ml Neb Administered 06/06/16 07:42 Dose 3 ml IH .STK-MED ONE Fentanyl Citrate 50 mcg 06/06/16 07:26 06/06/16 07:46 Sublimaze 100 Mcg/2 Ml IV 06/06/16 07:27 50 mcg STAT ONE Administration Fentanyl Citrate Confirm 06/06/16 07:43 Sublimaze 100 Mcg/2 Ml Administered 06/06/16 07:44 Dose 100 mcg .ROUTE .STK-MED ONE Lab/Rad Data: Laboratory Result Diagrams 06/06/16 07:52 06/06/16 07:52 Laboratory Results 06/06/16 06/06/16 Range/Units 07:52 07:52 WBC 5.8 (4.0-10.5) K/mm3 RBC 3.47 L (4.1-5.6) M/mm3 Hgb 10.0 L (12.5-18.0) gm/dl Hct 32.2 L (42-50) % MCV 92.8 (78-100) fl MCH 28.8 (26-32) pg MCHC 31.1 L (32-36) g/dl RDW 16.7 H (11.5-14.0) % Plt Count 144 L (150-450) K/mm3 MPV 9.9 H (6-9.5) fl Gran % 61.5 (36.0-66.0) % Lymphocytes % 11.4 L (24.0-44.0) % Monocytes % 23.1 H (0.0-12.0) % Eosinophils % 2.6 (0.00-5.0) % Basophils % 1.4 (0.0-0.4) % Basophils # 0.08 (0-0.4) Sodium 136 (136-145) mEq/L Potassium 3.9 (3.5-5.1) mEq/L Chloride 96 L (98-107) mEq/L Carbon Dioxide 24.5 (21-32) mEq/L Anion Gap 19.3 H (5-15) MEQ/L BUN 39 H (9-20) mg/dL Creatinine 6.70 H (0.55-1.30) mg/dl Estimated GFR 9 ML/MIN Glucose 148 H (70-110) MG/DL Calcium 8.4 L (8.5-10.1) mg/dL - Progress Progress: improved Air Movement: fair Counseled pt/family regarding: lab results, diagnosis, need for follow-up - Departure Time of Disposition: 08:37 Departure Disposition: Home Clinical Impression: Shortness of breath Headache Qualifiers: Headache type: hemicrania continua Qualified Code(s): 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 Please take your medication as prescribed if given. If symptoms recur or get worse, come back to the emergency room if you cannot reach your primary care physician, or call your primary care physician for an appointment. Again if your symptoms get worse, come back to the emergency room. Thanks for visiting emergency room, and let us take care of you.
[2016-06-06] MEDS ORDERED: SUBLIMAZE 100 MCG/2 ML ONE (07:43)
[2016-06-06 08:01] LABS: BASOPHIL % 1.4 % (0.0-0.4); Eosinophil % 2.6 % (0.00-5.0); Granulocytes % 61.5 % (36.0-66.0); Lymphocytes % 11.4 % (24.0-44.0); Mean Cell Volume 92.8 fl (78-100); Mean Corpuscular Hemoglobin 28.8 pg (26-32); Mean Platelet Volume 9.9 fl (6-9.5); Monocytes % 23.1 % (0.0-12.0); Platelet Count 144 K/mm3 (150-450); Red Blood Count 3.47 M/mm3 (4.1-5.6); Red Cell Distribution Width 16.7 % (11.5-14.0); White Blood Count 5.8 K/mm3 (4.0-10.5)
[2016-06-06 08:09] LABS: ANION GAP 19.3 MEQ/L (5-15); Carbon Dioxide 24.5 mEq/L (21-32); Potassium 3.9 mEq/L (3.5-5.1)
[2016-06-06] MEDS ORDERED: DILAUDID 1 MG/ML INJECTION IV ONE (08:39)
[2016-06-06] MEDS ORDERED: DILAUDID 1 MG/ML INJECTION ONE (08:46)
[2016-06-06 08:59] VITALS: BP 171/88; PULSE 71; O2SAT 94
== END 2016-06-06 08:57 | disposition home or self-care (01) ==
LOC: ED 07:00
DX: G44.51 Hemicrania continua (principal); I50.42 Chronic combined systolic (congestive) and diastolic (congestive) heart failure; I50.9 Heart failure, unspecified; I25.10 Atherosclerotic heart disease of native coronary artery without angina pectoris; I10 Essential (primary) hypertension; E11.9 Type 2 diabetes mellitus without complications; E03.9 Hypothyroidism, unspecified; Z79.899 Other long term (current) drug therapy; Z79.01 Long term (current) use of anticoagulants
CPT/HCPCS: 36415; 80048; 85025; 94640; 96374; 96375; 99283; J1170; J1642; J3010

== ENCOUNTER 2016-06-12 11:50 | Emergency (ER) | payer MEDICARE ==
[2016-06-12] MEDS ORDERED: DUONEB 0.5-3 MG/3 ml Neb IH ONE ×2 (11:59→12:00)
--- NOTE | 2016-06-12 12:15 | ERPHSYRPT ---
- History of Present Illness Time Seen by Provider: 06/12/16 12:12 Source: patient Exam Limitations: no limitations Patient Subjective Stated Complaint: pt states he has had a cough over a week and is currently taking an antibiotic for cough and is being set up with a home nebulizer. Triage Nursing Assessment: pt pink, warm, dry. anterior lung sounds wheezes. pt afebrile. pt ambulated into er without difficulty. Physician History: pt states he has had a cough over a week and is currently taking an antibiotic for cough and is being set up with a home nebulizer. Patient has a significant medical history of type 2 diabetes mellitus with nephropathy and patient is on hemodialysis 3 times a week. Patient has multiple ER visits in the last 7 days for the same complaint. He supposed to get his nebulizer machine and nebulizer solution today that he could not wait until then so he came to the emergency room Allergies/Adverse Reactions: erythromycin base [Erythromycin Base] Allergy (Unknown, Verified 06/06/16 07:09) iodine [Iodine] Allergy (Unknown, Verified 06/06/16 07:09) Macrolide Antibiotics Allergy (Unknown, Verified 06/06/16 07:09) nitrofurantoin [Nitrofurantoin] Allergy (Unknown, Verified 06/06/16 07:09) acetaminophen [From Lortab] Allergy (Verified 06/06/16 07:09) hydrocodone bitartrate [From Lortab] Allergy (Verified 06/06/16 07:09) morphine Allergy (Verified 06/06/16 07:09) shellfish derived Allergy (Verified 06/06/16 07:09) Home Medications: Amlodipine Besylate 5 mg [Norvasc 5 mg] 10 mg PO DAILY 07/07/15 [History] Apixaban [Eliquis] 1 tab PO BID 07/07/15 [History] Aspirin 81 mg PO DAILY 07/07/15 [History] Atorvastatin Calcium [Lipitor] 40 mg PO HS 07/07/15 [History] Clonidine HCl 0.1 mg [Catapres 0.1 MG] 0.2 mg PO BID 07/07/15 [History] Clopidogrel Bisulfate 75 mg [PLAVIX 75 MG Tablet] 75 mg PO DAILY 07/07/15 [History] Divalproex Sodium ER 250 mg [Depakote EXTENDED RELEASE 250 MG] 250 mg PO Q12H 07/07/15 [History] Furosemide 40 mg [Lasix 40 MG] 40 mg PO TID 07/07/15 [History] Insulin Glargine [Lantus Insulin] 15 unit SQ DAILY 07/07/15 [History] Insulin Lispro [Humalog Kwikpen U-100] 0 unit SQ UD 07/07/15 [History] Labetalol HCl 200 mg PO Q12H 07/07/15 [History] Levothyroxine Sodium 75 Mcg [Synthroid 75 Mcg] 75 mcg PO DAILY 07/07/15 [ History] Lisinopril 10 mg [Zestril 10 MG] 20 mg PO DAILY 07/07/15 [History] Metoprolol Succinate 25 mg Xl* [Toprol-Xl 25MG Tablets] 1 tab PO BID [History] Nitroglycerin 0.4 mg Tablet [Nitrostat 0.4 MG Tablet] 0.4 mg SL UD [History] Ondansetron [Ondansetron Odt] 4 mg PO BIDPRN PRN 07/07/15 [History] PANTOPRAZOLE 40 mg Tablet [Protonix 40MG Tablet] 40 mg PO DAILY 07/07/15 [ History] Hx Tetanus, Diphtheria Vaccination/Date Given: Yes (up to date) Hx Influenza Vaccination/Date Given: Yes Hx Pneumococcal Vaccination/Date Given: Yes Immunizations Up to Date: Yes - Review of Systems Constitutional: No Symptoms Ears, Nose, & Throat: No Symptoms Respiratory: Cough, Wheezing Cardiac: No Symptoms Abdominal/Gastrointestinal: No Symptoms Genitourinary Symptoms: No Symptoms Musculoskeletal: No Symptoms - Past Medical History Pertinent Past Medical History: Yes Neurological History: Migraines ENT History: No Pertinent History Cardiac History: Congestive Heart Failure, Coronary Artery Disease, Hypertension , Myocardial Infarction ([place]) Respiratory History: CHF, COPD Endocrine Medical History: Diabetes Type II, Hypothyroidism Musculoskeletal History: Osteoarthritis, Other GI Medical History: No Pertinent History History: Dialysis, Renal Disease Psycho-Social History: No Pertinent History Male Reproductive Disorders: No Pertinent History Other Medical History: RLS - Past Surgical History Past Surgical History: Yes Neuro Surgical History: No Pertinent History Cardiac: CABG, Cardiac Catheterization, Cardiac Stent Respiratory: No Pertinent History Gastrointestinal: Cholecystectomy Genitourinary: No Pertinent History Musculoskeletal: Orthopedic Surgery Male Surgical History: No Pertinent History Other Surgical History: FISTULA, R hip surgery - Social History Smoking Status: Former smoker How long have you smoked: 30 yrs Exposure to second hand smoke: No Alcohol Use: None Drug Use: none Patient Lives Alone: No Significant Family History: heart disease, hypertension - Nursing Vital Signs Nursing Vital Signs: Initial Vital Signs Temperature 98.8 F Temperature Source Oral Pulse Rate 68 Respiratory Rate 18 Blood Pressure [Right Arm] 162/80 Pain Intensity 0 - Physical Exam General Appearance: no apparent distress Eye Exam: PERRL/EOMI Neck Exam: normal inspection Respiratory Exam: wheezing Cardiovascular/Chest Exam: normal heart sounds SpO2 Interpretation: normal SpO2: 96 Oxygen Delivery: Room Air - Course Nursing assessment & vital signs reviewed: Yes Ordered Tests: Medication Summary Discontinued Medications Generic Name Dose Route Start Last Admin Trade Name Freq PRN Reason Stop Dose Admin Albuterol/Ipratropium Confirm 06/12/16 11:59 Duoneb 0.5-3 Mg/3 Ml Neb Administered 06/12/16 12:00 Dose 3 ml IH .STK-MED ONE - Progress Progress: improved Air Movement: good Counseled pt/family regarding: diagnosis, need for follow-up - Departure Time of Disposition: 12:15 Departure Disposition: Home Clinical Impression: Bronchospasm with bronchitis, acute Condition: Good Critical Care Time: No Referrals: DALILA MARY [Primary Care Provider] -
[2016-06-12 13:03] VITALS: BP 142/73; PULSE 81; O2SAT 97
[2016-06-12] MEDS ORDERED: PULMICORT NEBULE IH SCH (19:00)
== END 2016-06-12 13:03 | disposition home or self-care (01) ==
LOC: ED 11:50
DX: J20.9 Acute bronchitis, unspecified (principal)
CPT/HCPCS: 94640; 99283

== ENCOUNTER 2016-06-16 13:42 | Emergency (ER) | payer MEDICARE ==
[2016-06-16] MEDS ORDERED: Nitrostat 0.4 MG (ED) SL ONE ×2 (13:54→14:01)
--- NOTE | 2016-06-16 13:56 | ERPHSYRPT ---
- History of Present Illness Time Seen by Provider: 06/16/16 13:45 Historian: patient Physician History: PATIENT WITH HISTORY OF TYPE 2 DIABETES, COPD, CHRONIC RENAL FAILURE, CORONARY ARTERY DISEASE, COMPLAINS OF CHEST PAINS TODAY PAST 4 HOURS, NO RELIEF OF DULL ACHING PAIN WITH NITROGLYCERIN X 3 DOSES. DENIES RADIATION OF PAIN, DYSPNEA, PALPITATIONS OR DIAPHORESIS. HAD SIMILAR EPISODE OF CHEST PAIN 3 DAYS AGO. THIS IS HIS 8TH EMERGENCY VISIT HERE AT [facility] OVER 4 WEEKS. Timing/Duration: today Activities at Onset: none Quality: dullness Location: substernal Chest Pain Radiation: no radiation Severity of Pain-Max: moderate Severity of Pain-Current: moderate Modifying Factors: Improves With: nothing Associated Symptoms: cough Prior Chest Pain/Cardiac Workup: cardiac cath Nitro Today/Relief: 0.4 mg x 3, provided at home Aspirin Treatment Today: 81 mg x 4, provided at home Allergies/Adverse Reactions: erythromycin base [Erythromycin Base] Allergy (Unknown, Verified 06/16/16 14:04) iodine [Iodine] Allergy (Unknown, Verified 06/16/16 14:04) Macrolide Antibiotics Allergy (Unknown, Verified 06/16/16 14:04) nitrofurantoin [Nitrofurantoin] Allergy (Unknown, Verified 06/16/16 14:04) acetaminophen [From Lortab] Allergy (Verified 06/16/16 14:04) hydrocodone bitartrate [From Lortab] Allergy (Verified 06/16/16 14:04) morphine Allergy (Verified 06/16/16 14:04) shellfish derived Allergy (Verified 06/16/16 14:04) Home Medications: Amlodipine Besylate 5 mg [Norvasc 5 mg] 10 mg PO DAILY 07/07/15 [History] Apixaban [Eliquis] 1 tab PO BID 07/07/15 [History] Aspirin 81 mg PO DAILY 07/07/15 [History] Atorvastatin Calcium [Lipitor] 40 mg PO HS 07/07/15 [History] Clonidine HCl 0.1 mg [Catapres 0.1 MG] 0.2 mg PO BID 07/07/15 [History] Clopidogrel Bisulfate 75 mg [PLAVIX 75 MG Tablet] 75 mg PO DAILY 07/07/15 [History] Divalproex Sodium ER 250 mg [Depakote EXTENDED RELEASE 250 MG] 250 mg PO Q12H 07/07/15 [History] Furosemide 40 mg [Lasix 40 MG] 40 mg PO TID 07/07/15 [History] Insulin Glargine [Lantus Insulin] 15 unit SQ DAILY 07/07/15 [History] Insulin Lispro [Humalog Kwikpen U-100] 0 unit SQ UD 07/07/15 [History] Labetalol HCl 200 mg PO Q12H 07/07/15 [History] Levothyroxine Sodium 75 Mcg [Synthroid 75 Mcg] 75 mcg PO DAILY 07/07/15 [ History] Lisinopril 10 mg [Zestril 10 MG] 20 mg PO DAILY 07/07/15 [History] Metoprolol Succinate 25 mg Xl* [Toprol-Xl 25MG Tablets] 1 tab PO BID [History] Nitroglycerin 0.4 mg Tablet [Nitrostat 0.4 MG Tablet] 0.4 mg SL UD [History] Ondansetron [Ondansetron Odt] 4 mg PO BIDPRN PRN 07/07/15 [History] PANTOPRAZOLE 40 mg Tablet [Protonix 40MG Tablet] 40 mg PO DAILY 07/07/15 [ History] Hx Tetanus, Diphtheria Vaccination/Date Given: Yes (up to date) Hx Influenza Vaccination/Date Given: Yes Hx Pneumococcal Vaccination/Date Given: Yes - Review of Systems Constitutional: No Fever, No Chills Eyes: No Symptoms Ears, Nose, & Throat: No Symptoms Respiratory: No Symptoms, No Cough, No Dyspnea Cardiac: Chest Pain, No Edema, No Syncope Abdominal/Gastrointestinal: No Symptoms, No Abdominal Pain, No Nausea, No Vomiting, No Diarrhea Genitourinary Symptoms: No Symptoms, No Dysuria Musculoskeletal: No Back Pain, No Neck Pain Skin: No Symptoms, No Rash Neurological: No Symptoms, No Dizziness, No Focal Weakness, No Sensory Changes Psychological: No Symptoms Endocrine: No Symptoms All Other Systems: Reviewed and Negative - Past Medical History Pertinent Past Medical History: Yes Neurological History: Migraines ENT History: No Pertinent History Cardiac History: Congestive Heart Failure, Coronary Artery Disease, Hypertension , Myocardial Infarction ([place]) Respiratory History: CHF, COPD Endocrine Medical History: Diabetes Type II, Hypothyroidism Musculoskeletal History: Osteoarthritis, Other GI Medical History: No Pertinent History History: Dialysis, Renal Disease Psycho-Social History: No Pertinent History Male Reproductive Disorders: No Pertinent History Other Medical History: RLS - Past Surgical History Past Surgical History: Yes Neuro Surgical History: No Pertinent History Cardiac: CABG, Cardiac Catheterization, Cardiac Stent Respiratory: No Pertinent History Gastrointestinal: Cholecystectomy Genitourinary: No Pertinent History Musculoskeletal: Orthopedic Surgery Male Surgical History: No Pertinent History Other Surgical History: FISTULA, R hip surgery - Social History Smoking Status: Former smoker How long have you smoked: 30 yrs Exposure to second hand smoke: No Alcohol Use: None Drug Use: none Patient Lives Alone: No Significant Family History: heart disease, hypertension - Nursing Vital Signs Temperature: 98.7 F Temperature Source: Oral Pulse Rate: 74 Respiratory Rate: 18 Pain Intensity: 8 - Physical Exam General Appearance: no apparent distress, alert Eye Exam: PERRL/EOMI, eyes nml inspection Ears, Nose, Throat Exam: normal ENT inspection, moist mucous membranes Neck Exam: normal inspection, non-tender, supple, full range of motion Respiratory Exam: normal breath sounds, lungs clear, No respiratory distress Cardiovascular Exam: regular rate/rhythm, normal heart sounds Gastrointestinal/Abdomen Exam: soft, normal bowel sounds (OBESE), No tenderness (NONTENDER), No mass Back Exam: normal inspection, No CVA tenderness, No vertebral tenderness Extremity Exam: normal inspection, normal range of motion Neurologic Exam: alert, oriented x 3, cooperative, normal mood/affect, sensation nml, No motor deficits Skin Exam: normal color, warm, dry SpO2 Interpretation: normal SpO2: 95 Oxygen Delivery: Room Air - Course EKG Interpreted by Me: RATE, Sinus Rhythm (INTRAVENTRICULAR CONDUCTION DELAY), Left [place] Deviation - Radiology Exams Chest X-ray Interpretation: Reviewed by me (MILD CARDIOMEGALY,LEFT PORT-A-CATH AND RIGHT SUBCLAVIAN STENT), Discussed w/ radiologist Ordered Tests: Active Orders 24 hr Category Date Time Status Food Quality Tester STAT Care 06/16/16 13:54 Active EKG-ER Only STAT Care 06/16/16 13:54 Active IV Insertion STAT Care 06/16/16 13:54 Active Oxygen-ED Only NASAL CANNULA 2 lpm Care 06/16/16 13:54 Active CHEST 1 VIEW (PORTABLE) Stat Exams 06/16/16 13:55 Completed CBC W DIFF Stat Lab 06/16/16 13:55 Completed CMP Stat Lab 06/16/16 13:55 Completed Manual Differential NC Stat Lab 06/16/16 13:55 Completed PROTIME WITH INR Stat Lab 06/16/16 13:55 Completed TROPONIN Q3H Lab 06/16/16 14:00 Completed TROPONIN Q3H Lab 06/16/16 17:00 Ordered TROPONIN Q3H Lab 06/16/16 20:00 Ordered TROPONIN Q3H Lab 06/16/16 23:00 Ordered TROPONIN Q3H Lab 06/17/16 02:00 Ordered Respiratory Nebulizer STAT RT 06/16/16 14:22 Active Medication Summary Generic Name Dose Route Start Last Admin Trade Name Freq PRN Reason Stop Dose Admin Sodium Chloride 1,000 mls @ 20 mls/hr 06/16/16 14:00 06/16/16 14:03 Sodium Chloride 0.9% 1000 Ml IV 07/16/16 13:59 20 mls/hr .Q24H FILI Administration Discontinued Medications Generic Name Dose Route Start Last Admin Trade Name Freq PRN Reason Stop Dose Admin Albuterol/Ipratropium 3 ml 06/16/16 14:21 06/16/16 14:50 Duoneb 0.5-3 Mg/3 Ml Neb IH 06/16/16 14:22 3 ml STAT ONE Administration Albuterol/Ipratropium Confirm 06/16/16 14:41 Duoneb 0.5-3 Mg/3 Ml Neb Administered 06/16/16 14:42 Dose 3 ml IH .STK-MED ONE Diphenhydramine HCl 12.5 mg 06/16/16 15:40 06/16/16 15:48 Benadryl 50 Mg/Ml IV 06/16/16 15:41 12.5 mg STAT ONE Administration Diphenhydramine HCl Confirm 06/16/16 15:46 Benadryl 50 Mg/Ml Administered 06/16/16 15:47 Dose 50 mg .ROUTE .STK-MED ONE Diphenhydramine HCl Confirm 06/16/16 15:54 Benadryl 50 Mg/Ml Administered 06/16/16 15:55 Dose 50 mg .ROUTE .STK-MED ONE Fentanyl Citrate 50 mcg 06/16/16 15:41 06/16/16 15:50 Sublimaze 100 Mcg/2 Ml IV 06/16/16 15:42 50 mcg STAT ONE Administration Fentanyl Citrate Confirm 06/16/16 15:46 Sublimaze 100 Mcg/2 Ml Administered 06/16/16 15:47 Dose 100 mcg .ROUTE .STK-MED ONE Fentanyl Citrate Confirm 06/16/16 15:55 Sublimaze 100 Mcg/2 Ml Administered 06/16/16 15:56 Dose 100 mcg .ROUTE .STK-MED ONE Sodium Chloride Confirm 06/16/16 14:01 Sodium Chloride 0.9% 1000 Ml Administered 06/16/16 14:02 Dose 1,000 mls @ ud .ROUTE .STK-MED ONE Nitroglycerin 0.4 mg 06/16/16 13:54 06/16/16 14:03 Nitrostat 0.4 Mg (Ed) SL 06/16/16 13:55 0.4 mg STAT ONE Administration Nitroglycerin Confirm 06/16/16 14:01 Nitrostat 0.4 Mg (Ed) Administered 06/16/16 14:02 Dose 0.4 mg SL .STK-MED ONE Nitroglycerin 1 gm 06/16/16 16:38 06/16/16 16:40 Nitro-Bid 2% Ud Packets TOP 06/16/16 16:39 1 gm STAT ONE Administration Nitroglycerin Confirm 06/16/16 16:39 Nitro-Bid 2% Ud Packets Administered 06/16/16 16:40 Dose 1 gm .ROUTE .STK-MED ONE Lab/Rad Data: Laboratory Result Diagrams 06/16/16 13:55 06/16/16 13:55 Laboratory Results 06/16/16 06/16/16 06/16/16 Range/Units 14:00 13:55 13:55 WBC (4.0-10.5) K/mm3 RBC (4.1-5.6) M/mm3 Hgb (12.5-18.0) gm/dl Hct (42-50) % MCV (78-100) fl MCH (26-32) pg MCHC (32-36) g/dl RDW (11.5-14.0) % Plt Count (150-450) K/mm3 MPV (6-9.5) fl Segmented Neutrophils (36.-66.) % Lymphocytes (Manual) (24-44) % Monocytes (Manual) (0.0-12.0) % Eosinophils (Manual) (0.00-3.0) % Differential Comment Platelet Estimate (NORMAL) Polychromasia Basophilic Stippling Anisocytosis INR 1.10 (0.8-3.0) Sodium 137 (136-145) mEq/L Potassium 3.9 (3.5-5.1) mEq/L Chloride 99 (98-107) mEq/L Carbon Dioxide 26.8 (21-32) mEq/L Anion Gap 15.5 H (5-15) MEQ/L BUN 33 H (9-20) mg/dL Creatinine 4.22 H (0.55-1.30) mg/dl Estimated GFR 16 ML/MIN Glucose 299 H (70-110) MG/DL Calcium 7.5 L (8.5-10.1) mg/dL Total Bilirubin 0.3 (0.2-1.0) mg/dL AST 22 (15-37) U/L ALT 28 (12-78) U/L Alkaline Phosphatase 102 (46-116) U/L Troponin I 0.056 (0.000-0.056) ng/ml Serum Total Protein 6.2 L (6.4-8.2) gm/dL Albumin 3.1 L (3.4-5.0) g/dL 06/16/16 Range/Units 13:55 WBC 10.3 (4.0-10.5) K/mm3 RBC 3.33 L (4.1-5.6) M/mm3 Hgb 9.4 L (12.5-18.0) gm/dl Hct 30.5 L (42-50) % MCV 91.6 (78-100) fl MCH 28.2 (26-32) pg MCHC 30.8 L (32-36) g/dl RDW 16.5 H (11.5-14.0) % Plt Count 188 (150-450) K/mm3 MPV 9.4 (6-9.5) fl Segmented Neutrophils 77 H (36.-66.) % Lymphocytes (Manual) 11 L (24-44) % Monocytes (Manual) 6 (0.0-12.0) % Eosinophils (Manual) 6 H (0.00-3.0) % Differential Comment ABNORMAL Platelet Estimate NORMAL (NORMAL) Polychromasia 1+ Basophilic Stippling RARE Anisocytosis 1+ INR (0.8-3.0) Sodium (136-145) mEq/L Potassium (3.5-5.1) mEq/L Chloride (98-107) mEq/L Carbon Dioxide (21-32) mEq/L Anion Gap (5-15) MEQ/L BUN (9-20) mg/dL Creatinine (0.55-1.30) mg/dl Estimated GFR ML/MIN Glucose (70-110) MG/DL Calcium (8.5-10.1) mg/dL Total Bilirubin (0.2-1.0) mg/dL AST (15-37) U/L ALT (12-78) U/L Alkaline Phosphatase (46-116) U/L Troponin I (0.000-0.056) ng/ml Serum Total Protein (6.4-8.2) gm/dL Albumin (3.4-5.0) g/dL - Progress Progress: re-examined Progress Note: 06/16/16 15:43 PATIENT GIVEN NTG 0.4MG SL, IV BENADRYL 12.5MG, FENTANYL 50MCG IV, FOLLOWED BY DUONEB AEROSOL [place] Discussed with : Other (DISCUSSED WITH DR MONTIEL HOSPITALIST AT [facility] ACCEPTS TRANSFER AT 1615) - Departure Time of Disposition: 17:10 Departure Disposition: Transfer Clinical Impression: ACUTE CHEST PAIN, EXACERBATION COPD Condition: Stable Critical Care Time: No Referrals: DALILA MARY [Primary Care Provider] -
[2016-06-16] MEDS ORDERED: Sodium Chloride 0.9% 1000 ML 1,000 ML IV SCH (14:00)
[2016-06-16] MEDS ORDERED: Sodium Chloride 0.9% 1000 ML 1,000 ML ONE (14:01)
[2016-06-16 14:07] LABS: Mean Cell Volume 91.6 fl (78-100); Mean Corpuscular Hemoglobin 28.2 pg (26-32); Mean Platelet Volume 9.4 fl (6-9.5); Platelet Count 188 K/mm3 (150-450); Red Blood Count 3.33 M/mm3 (4.1-5.6); Red Cell Distribution Width 16.5 % (11.5-14.0); White Blood Count 10.3 K/mm3 (4.0-10.5)
--- NOTE | 2016-06-16 14:19 | XRAY ---
Indication: Chest pain. Comparison: 2016 Portable chest is clear today. Heart remains borderline enlarged again with left Port-A-Cath and right subclavian stent. No new/acute cardiopulmonary abnormalities.
[2016-06-16] MEDS ORDERED: DUONEB 0.5-3 MG/3 ml Neb IH ONE ×2 (14:21→14:41)
[2016-06-16 14:23] LABS: INR 1.1 (0.8-3.0); PROTIME 12.3 SECONDS (8.83-12.87)
[2016-06-16 14:32] LABS: ALBUMIN 3.1 g/dL (3.4-5.0); ANION GAP 15.5 MEQ/L (5-15); BILIRUBIN,TOTAL 0.3 mg/dL (0.2-1.0); Carbon Dioxide 26.8 mEq/L (21-32); Potassium 3.9 mEq/L (3.5-5.1); Total Protein 6.2 gm/dL (6.4-8.2)
[2016-06-16 14:50] LABS: Eosinophil 6 % (0.00-3.0); Total Cells Counted 100
[2016-06-16 14:55] LABS: ANISOCYTOSIS 1+; Basophilic Stippling RARE; Polychromasia 1+
[2016-06-16 14:58] LABS: Platelet Estimate NORMAL (NORMAL)
[2016-06-16] MEDS ORDERED: BENADRYL 50 MG/ML IV ONE (15:40)
[2016-06-16] MEDS ORDERED: SUBLIMAZE 100 MCG/2 ML IV ONE (15:41)
[2016-06-16 15:44] VITALS: PULSE 74
[2016-06-16] MEDS ORDERED: BENADRYL 50 MG/ML ONE ×2 (15:46→15:54)
[2016-06-16] MEDS ORDERED: SUBLIMAZE 100 MCG/2 ML ONE ×2 (15:46→15:55)
[2016-06-16] MEDS ORDERED: NITRO-BID 2% UD PACKETS TOP ONE (16:38)
[2016-06-16] MEDS ORDERED: NITRO-BID 2% UD PACKETS ONE (16:39)
[2016-06-16 16:40] VITALS: O2SAT 95
[2016-06-16 17:27] VITALS: BP 162/76
== END 2016-06-16 17:07 | disposition short-term general hospital (02) ==
LOC: ED 13:42
DX: R07.89 Other chest pain (principal); J44.1 Chronic obstructive pulmonary disease with (acute) exacerbation; E11.9 Type 2 diabetes mellitus without complications; N18.9 Chronic kidney disease, unspecified; I25.10 Atherosclerotic heart disease of native coronary artery without angina pectoris; Z79.4 Long term (current) use of insulin; Z79.899 Other long term (current) drug therapy; Z79.01 Long term (current) use of anticoagulants; I25.2 Old myocardial infarction; I10 Essential (primary) hypertension; I50.9 Heart failure, unspecified
CPT/HCPCS: 36000; 36415; 71010; 80053; 84484; 85025; 85610; 93005; 93041; 94640; 96360; 96361; 96374; 96375; 99284; J1200; J3010

== ENCOUNTER → 2016-06-27 | Emergency (ER) | payer MEDICARE ==
[~2016-06-27] MED LIST: Hydromorphone 1 mg/ml Ampule IV ONE; Hydromorphone 1 mg/ml Ampule ONE; Lasix 40 MG/4 ML IV ONE; Lasix 40 MG/4 ML ONE; MAG-OX 400 ONE; MAG-OX 400 PO SCH; Magnesium 1 Gm / 100 Ml D5W*** 100 ML IV ONE; Phenergan 25 MG INJ IV ONE; Phenergan 25 MG INJ ONE; Sodium Chloride 0.9% 1000 ML 1,000 ML IV SCH; Sodium Chloride 0.9% 1000 ML 1,000 ML ONE
--- NOTE | 2016-06-27 01:34 | ERPHSYRPT ---
- History of Present Illness Time Seen by Provider: 06/27/16 01:20 Source: patient Exam Limitations: no limitations Patient Subjective Stated Complaint: pt states he thinks he needs dialysis and feels sob and is having chest pain. Triage Nursing Assessment: pt alert and oriented, answers questions approp. skin pink, moist, and warm. pt ambulatory with steady gait noted to room. respirations nonlabored at rest and sob noted when pt walked to room. pt sinus rhythm at 75 on monotor. o2 sat 95 on room air. Physician History: SINCE YESTERDAY PT HAS HAD SHORTNESS OF AIR ON EXERTION; FOR THE PAST 90 MINUTES DULL INTERMITTENT CHEST PAIN LASTING UP TO 15 MINUTES PER EPISODE, DIAPHORESIS AND NAUSEA. PT HAD DIALYSIS ON 06/25/16. Allergies/Adverse Reactions: erythromycin base [Erythromycin Base] Allergy (Unknown, Verified 06/16/16 14:04) iodine [Iodine] Allergy (Unknown, Verified 06/16/16 14:04) Macrolide Antibiotics Allergy (Unknown, Verified 06/16/16 14:04) nitrofurantoin [Nitrofurantoin] Allergy (Unknown, Verified 06/16/16 14:04) acetaminophen [From Lortab] Allergy (Verified 06/16/16 14:04) hydrocodone bitartrate [From Lortab] Allergy (Verified 06/16/16 14:04) morphine Allergy (Verified 06/16/16 14:04) shellfish derived Allergy (Verified 06/16/16 14:04) Home Medications: Amlodipine Besylate 5 mg [Norvasc 5 mg] 10 mg PO DAILY 07/07/15 [History] Apixaban [Eliquis] 1 tab PO BID 07/07/15 [History] Aspirin 81 mg PO DAILY 07/07/15 [History] Atorvastatin Calcium [Lipitor] 40 mg PO HS 07/07/15 [History] Clonidine HCl 0.1 mg [Catapres 0.1 MG] 0.2 mg PO BID 07/07/15 [History] Clopidogrel Bisulfate 75 mg [PLAVIX 75 MG Tablet] 75 mg PO DAILY 07/07/15 [History] Divalproex Sodium ER 250 mg [Depakote EXTENDED RELEASE 250 MG] 250 mg PO Q12H 07/07/15 [History] Furosemide 40 mg [Lasix 40 MG] 40 mg PO TID 07/07/15 [History] Insulin Glargine [Lantus Insulin] 15 unit SQ DAILY 07/07/15 [History] Insulin Lispro [Humalog Kwikpen U-100] 0 unit SQ UD 07/07/15 [History] Labetalol HCl 200 mg PO Q12H 07/07/15 [History] Levothyroxine Sodium 75 Mcg [Synthroid 75 Mcg] 75 mcg PO DAILY 07/07/15 [ History] Lisinopril 10 mg [Zestril 10 MG] 20 mg PO DAILY 07/07/15 [History] Metoprolol Succinate 25 mg Xl* [Toprol-Xl 25MG Tablets] 1 tab PO BID [History] Nitroglycerin 0.4 mg Tablet [Nitrostat 0.4 MG Tablet] 0.4 mg SL UD [History] Ondansetron [Ondansetron Odt] 4 mg PO BIDPRN PRN 07/07/15 [History] PANTOPRAZOLE 40 mg Tablet [Protonix 40MG Tablet] 40 mg PO DAILY 07/07/15 [ History] Hx Tetanus, Diphtheria Vaccination/Date Given: Yes (up to date) Hx Influenza Vaccination/Date Given: Yes Hx Pneumococcal Vaccination/Date Given: Yes Immunizations Up to Date: Yes - Review of Systems Constitutional: No Fever Respiratory: Dyspnea Cardiac: Chest Pain Abdominal/Gastrointestinal: Nausea Endocrine: Excessive Sweating All Other Systems: Reviewed and Negative - Past Medical History Pertinent Past Medical History: Yes Neurological History: Migraines ENT History: No Pertinent History Cardiac History: Congestive Heart Failure, Coronary Artery Disease, Hypertension , Myocardial Infarction ([place]) Respiratory History: CHF, COPD Endocrine Medical History: Diabetes Type II, Hypothyroidism Musculoskeletal History: Osteoarthritis, Other GI Medical History: No Pertinent History History: Dialysis, Renal Disease Psycho-Social History: No Pertinent History Male Reproductive Disorders: No Pertinent History Other Medical History: RLS - Past Surgical History Past Surgical History: Yes Neuro Surgical History: No Pertinent History Cardiac: CABG, Cardiac Catheterization, Cardiac Stent Respiratory: No Pertinent History Gastrointestinal: Cholecystectomy Genitourinary: No Pertinent History Musculoskeletal: Orthopedic Surgery Male Surgical History: No Pertinent History Other Surgical History: FISTULA, R hip surgery - Social History Smoking Status: Former smoker How long have you smoked: 30 yrs Exposure to second hand smoke: No Alcohol Use: None Drug Use: none Patient Lives Alone: No Significant Family History: heart disease, hypertension - Nursing Vital Signs Nursing Vital Signs: Initial Vital Signs Temperature 98.7 F Temperature Source Oral Pulse Rate 77 Respiratory Rate 18 Blood Pressure [] 170/109 Pain Intensity 7 - Physical Exam General Appearance: alert, anxiety Eye Exam: PERRL/EOMI Ears, Nose, Throat Exam: pharynx normal, moist mucous membranes, other (CERUMEN OCCLUSION OF THE LEFT EAR) Neck Exam: normal inspection Respiratory Exam: lungs clear Cardiovascular Exam: normal heart sounds Gastrointestinal/Abdomen Exam: soft, normal bowel sounds Back Exam: normal range of motion Extremity Exam: swelling (+1 ANKLE EDEMA BILATERALLY) Neurologic Exam: alert, cooperative Skin Exam: warm, dry SpO2 Interpretation: normal SpO2: 96 Oxygen Delivery: Room Air - Course Nursing assessment & vital signs reviewed: Yes EKG Interpreted by Me: RATE (76), Sinus Rhythm, NORMAL AXIS, NORMAL INTERVALS, Q -wave (III & aVF) - Radiology Exams Chest X-ray Interpretation: Interpreted by me (MILD CONGESTIVE CHANGES; CM.) Ordered Tests: Active Orders 24 hr Category Date Time Status EKG-ER Only STAT Care 06/27/16 01:26 Active IV Insertion STAT Care 06/27/16 01:26 Active CHEST 1 VIEW (PORTABLE) Stat Exams 06/27/16 01:27 Taken AMYLASE Stat Lab 06/27/16 01:32 Completed CBC W DIFF Stat Lab 06/27/16 01:32 Completed CMP Stat Lab 06/27/16 01:32 Completed LIPASE Stat Lab 06/27/16 01:32 Completed MAG [MAGNESIUM] Stat Lab 06/27/16 01:32 Completed TROPONIN Stat Lab 06/27/16 01:32 Completed Medication Summary Generic Name Dose Route Start Last Admin Trade Name Freq PRN Reason Stop Dose Admin Sodium Chloride 1,000 mls @ 100 mls/hr 06/27/16 01:30 06/27/16 01:41 Sodium Chloride 0.9% 1000 Ml IV 07/27/16 01:29 100 mls/hr .Q10H FILI Administration Magnesium Oxide 400 mg 06/27/16 10:00 06/27/16 02:15 Mag-Ox 400 PO 07/27/16 09:59 400 mg BID FILI Administration Discontinued Medications Generic Name Dose Route Start Last Admin Trade Name Deepika PRNorman Reason Stop Dose Admin Furosemide 40 mg 06/27/16 02:01 06/27/16 02:15 Lasix 40 Mg/4 Ml IV 06/27/16 02:02 40 mg STAT ONE Administration Furosemide Confirm 06/27/16 02:12 Lasix 40 Mg/4 Ml Administered 06/27/16 02:13 Dose 40 mg .ROUTE .STK-MED ONE Hydromorphone HCl 1 mg 06/27/16 01:27 06/27/16 01:41 Hydromorphone 1 Mg/Ml Ampule IV 06/27/16 01:28 1 mg STAT ONE Administration Hydromorphone HCl Confirm 06/27/16 01:39 Hydromorphone 1 Mg/Ml Ampule Administered 06/27/16 01:40 Dose 1 mg .ROUTE .STK-MED ONE Sodium Chloride Confirm 06/27/16 01:39 Sodium Chloride 0.9% 1000 Ml Administered 06/27/16 01:40 Dose 1,000 mls @ ud .ROUTE .STK-MED ONE Magnesium Sulfate/Dextrose 100 mls @ 200 mls/hr 06/27/16 02:04 06/27/16 02:15 Magnesium 1 Gm / 100 Ml D5w IV 06/27/16 02:33 200 mls/hr STAT ONE Administration Magnesium Sulfate/Dextrose Confirm 06/27/16 02:12 Magnesium 1 Gm / 100 Ml D5w Administered 06/27/16 02:13 Dose 100 mls @ ud IV .STK-MED ONE Magnesium Oxide Confirm 06/27/16 02:12 Mag-Ox 400 Administered 06/27/16 02:13 Dose 400 mg .ROUTE .STK-MED ONE Promethazine HCl 12.5 mg 06/27/16 01:27 06/27/16 01:41 Phenergan 25 Mg Inj IV 06/27/16 01:28 12.5 mg STAT ONE Administration Promethazine HCl Confirm 06/27/16 01:38 Phenergan 25 Mg Inj Administered 02/12/17 01:39 Dose 25 mg .ROUTE .STK-MED ONE Lab/Rad Data: Laboratory Result Diagrams 06/27/16 01:32 06/27/16 01:32 Laboratory Results 06/27/16 06/27/16 06/27/16 Range/Units 01:32 01:32 01:32 WBC 8.0 (4.0-10.5) K/mm3 RBC 3.10 L (4.1-5.6) M/mm3 Hgb 9.0 L (12.5-18.0) gm/dl Hct 28.9 L (42-50) % MCV 93.2 (78-100) fl MCH 29.0 (26-32) pg MCHC 31.1 L (32-36) g/dl RDW 16.2 H (11.5-14.0) % Plt Count 171 (150-450) K/mm3 MPV 9.7 H (6-9.5) fl Gran % 68.6 H (36.0-66.0) % Lymphocytes % 14.3 L (24.0-44.0) % Monocytes % 10.6 (0.0-12.0) % Eosinophils % 4.6 (0.00-5.0) % Basophils % 1.9 (0.0-0.4) % Basophils # 0.15 (0-0.4) Sodium 133 L (136-145) mEq/L Potassium 4.8 (3.5-5.1) mEq/L Chloride 98 (98-107) mEq/L Carbon Dioxide 22.6 (21-32) mEq/L Anion Gap 17.1 H (5-15) MEQ/L BUN 50 H (9-20) mg/dL Creatinine 6.63 H (0.55-1.30) mg/dl Estimated GFR 10 ML/MIN Glucose 222 H (70-110) MG/DL Calcium 7.8 L (8.5-10.1) mg/dL Magnesium 1.7 L (1.8-2.4) mg/dL Total Bilirubin 0.5 (0.2-1.0) mg/dL AST 19 (15-37) U/L ALT 7 L (12-78) U/L Alkaline Phosphatase 134 H (46-116) U/L Troponin I < 0.017 (0.000-0.056) ng/ml Serum Total Protein 6.8 (6.4-8.2) gm/dL Albumin 3.5 (3.4-5.0) g/dL Amylase 29 (25-115) U/L Lipase 68 L (73-393) U/L - Progress Discussed with Dr.: Other (SPOKE WITH Kelly PARKER(P.A. FOR DR CARTER)([id number]) WHO ACCEPTED PT FOR TRANSFER TO [facility] A DIRECT ADMISSION.) - Departure Time of Disposition: 02:45 Departure Disposition: Transfer ([facility]) Clinical Impression: CHF, CHEST PAIN, DYSPNEA, DM, HYPOMAGNESEMIA, CAD, HTN, COPD, ARTHRITIS, HYPOTHYROIDISM, ESRD, RLS Condition: Fair Critical Care Time: No Referrals: DALILA MARY [Primary Care Provider] -
[2016-06-27 01:36] LABS: BASOPHIL % 1.9 % (0.0-0.4); Eosinophil % 4.6 % (0.00-5.0); Granulocytes % 68.6 % (36.0-66.0); Lymphocytes % 14.3 % (24.0-44.0); Mean Cell Volume 93.2 fl (78-100); Mean Platelet Volume 9.7 fl (6-9.5); Monocytes % 10.6 % (0.0-12.0); Platelet Count 171 K/mm3 (150-450); Red Cell Distribution Width 16.2 % (11.5-14.0)
[2016-06-27 01:57] LABS: ALBUMIN 3.5 g/dL (3.4-5.0); ALKALINE PHOSPHATASE 134 U/L (46-116); ANION GAP 17.1 MEQ/L (5-15); BILIRUBIN,TOTAL 0.5 mg/dL (0.2-1.0); BLOOD UREA NITROGEN 50 mg/dL (9-20); CHLORIDE 98 mEq/L (98-107); Carbon Dioxide 22.6 mEq/L (21-32); Glucose 222 MG/DL (70-110); LIPASE 68 U/L (73-393); Potassium 4.8 mEq/L (3.5-5.1); SGOT/AST 19 U/L (15-37); SGPT/ALT 7 U/L (12-78); SODIUM 133 mEq/L (136-145); Total Protein 6.8 gm/dL (6.4-8.2)
[2016-06-27 02:02] LABS: TROPONIN < 0.017 ng/ml (0.000-0.056)
[2016-06-27 03:51] VITALS: O2SAT 98
[2016-06-27 04:01] VITALS: BP 199/98; PULSE 67
--- NOTE | 2016-06-27 09:58 | XRAY ---
Indication: Chest pain. Comparison: June 16, 2016. Portable chest demonstrates interval minimally enlarging cardiomegaly with new vascular congestion and small bibasilar effusions concerning for cardiac decompensation. Stable left Port-A-Cath and right subclavian stent. Superimposed pneumonia not excluded.
== END | disposition short-term general hospital (02) ==
LOC: ED 00:51
DX: I50.9 Heart failure, unspecified (principal); R07.89 Other chest pain; R06.00 Dyspnea, unspecified; E11.9 Type 2 diabetes mellitus without complications; E83.42 Hypomagnesemia; I25.10 Atherosclerotic heart disease of native coronary artery without angina pectoris; I10 Essential (primary) hypertension; J44.9 Chronic obstructive pulmonary disease, unspecified; M19.90 Unspecified osteoarthritis, unspecified site; E03.9 Hypothyroidism, unspecified; N18.6 End stage renal disease; G25.81 Restless legs syndrome; Z79.4 Long term (current) use of insulin; Z79.01 Long term (current) use of anticoagulants; Z79.899 Other long term (current) drug therapy
CPT/HCPCS: 93041; 96374; 96365; 99285; 36000; 96360; 96361; 96375; 93005; 82150; 36415; 83690; 83735; 85025; 80053; 84484; 71010; A9270; 99284; 99291; J1170; J1940; J2550; J3475